=== PATIENT | female | born 1980 ===

== ENCOUNTER 2025-07-11 11:02 | Outpatient (AMB) | payer OTHER, SELFPAY ==
--- OUTSIDE RECORDS SUMMARY | 2025-07-11 13:29 | XMS_ITS | Clinical Summary ---
Author Organization [facility] [address] [facility] Address [address] [place] [address] Phone Care Team Providers Care Senior Regulatory Affairs Specialist Name Role Phone Karen Oakes MD Primary Care Provider [phone] Allergies Active Allergy Reactions Criticality Noted Date Comments Diazepam Nausea And Vomiting 01/18/2006 Oxycodone-Acetaminophen Nausea And Vomiting Pentobarbital Sodium Nausea And Vomiting 2005 Medications mesalamine (CANASA) 1,000 mg suppositoryInd ications:Ulcer ative proctitis ([facility] V24, [facility] V28) Insert 1 suppository (1,000 mg total) into the rectum at bedtime. 30 suppository 5 5 Active L norgest/e.estr adioL-e.estrad (Seasonique) 0.15 mg-30 mcg (84)/10 mcg (7) per tablet Take 1 tablet by mouth 1 (one) time each day. 0 Active fluticasone propionate (FLONASE) 50 mcg/actuation nasal spray 2 spray each nostril daily prn 0 Active MULTIVITAMIN ORAL None Entered Active mesalamine (CANASA) 1,000 mg suppositoryInd ications:Ulcer ative proctitis with rectal bleeding ([facility] V24, [facility] V28) Insert 1 suppository (1,000 mg total) into the rectum at bedtime. Use as directed 90 each 3 5 026 Active Active Problems Problem Noted Date Diagnosed Date Ulcerative (chronic) proctitis ([facility] V24, [facility] V28) 01/26/2025 2014 Sprain of sacroiliac ligament 05/29/2010 Goiter 05/25/2010 Immunizations Name Administration Dates Next Due Td, Unspecified 05/16/2005 Surgical History Surgery Date Site/Laterality Comments OTHER SURGICAL HISTORY 2006 PROCEDURE: ARTHROSCOPY PROCEDURE NEC; COMMENT: right ankle COLONOSCOPY 06/03/2014 - 07/03/2014 moderatly active proctitis Medical History Medical History Date Comments Goiter DX:Goiter; COMME NT: treated as a child Family History Medical History Relation Name Comments Basal cell carcinoma Father Coronary artery disease Father Hypertension Father Other cancer Maternal Grandmother Basal cell carcinoma Paternal Grandmother Breast cancer Neg Hx Colon cancer Neg Hx Ovarian cancer Neg Hx Relation Name Status Comments Brother Alive Father Alive Family heart hx Maternal Grandfather Alive estrang ed Maternal Grandmother Mother Alive Paternal Grandfather Paternal Grandmother Alive Social History Tobacco Use Types Packs/Day Years Used Date Smoking Tobacco: Never Alcohol Use Standard Drinks/Week Comments Yes 0 (1 standard drink = 0.6 oz pur e alcohol) Comments Unknown Sex and Gender Information Value Date Recorded Sex Assigned at Not on file Legal Sex Female 12:18 PM EST Gender Identity Not on file Sexual Orientation Not on file Obstetrics History Last Filed Vital Signs Vital Sign Reading Time Taken Comments Blood Pressure - - Pulse - - Temperature - - Respiratory Rate - - Oxygen Saturation - - Inhaled Oxygen Concentration - - Weight 77.1 kg (170 lb) 01/26/2025 3:05 PM EDT Height 170.2 cm (5' 7 ) 01/26/2025 3:05 PM EDT Body Mass Index 26.63 01/26/2025 3:05 PM EDT Plan of Treatment Health Maintenance Due Date Last Done Comments Breast Cancer Screening 1980 Hepatitis B Vaccines (1 of 3 - 19+ 3-dose series) 1999 Cervical Cancer Screening: Pap Smear 05/24/2013 05/24/2010 DTaP,Tdap,and Td Vaccines (3 - Td or Tdap) 12/04/2022 12/04/2012, 05/16/2005 Depression Screening 11/03/2024 HIV Screening 12/27/2024 Hepatitis C Screening 12/27/2024 Social Influencers of Health Screening 12/27/2024 COVID-19 Vaccine ( season) 2025 07/17/2021, 06/26/2021 Influenza Vaccine (#1) 2025 9, 08/03/2018, 07/23/2018, Additional history exists HIB Vaccines Aged Out No longer eligi ble based on patient's age to complete this topic HPV Vaccines Aged Out No longer eligi ble based on patient's age to complete this topic Hepatitis A Vaccines Aged Out No long er eligible based on patient's age to complete this topic IPV Vaccines Aged Out No longer eligi ble based on patient's age to complete this topic MMR Vaccines Aged Out No longer eligi ble based on patient's age to complete this topic Meningococcal ACWY Vaccine Aged Out N o longer eligible based on patient's age to complete this topic Meningococcal B Vaccine Aged Out No l onger eligible based on patient's age to complete this topic Pneumococcal Vaccine: Pediatrics (0 to 5 Years) and At-Risk Patients (6 to 49 Years) Aged Out No longer eligible based on patient's age to complete this topic RSV Immunization Patients Under 20 months Aged Out No longer eligible based on patient's age to complete this topic Varicella Vaccines Aged Out No longer eligible based on patient's age to complete this topic Procedures Procedure Name Priority Date/Time Associated Diagnosis Comments PAP SMEAR Routine 05/24/2010 from Last 3 Months or Most Recently Relevant to Health Maintenance Results * Pap Smear (05/24/2010) Pap smear no interpretation , abstracted Historical Provider HEALTH MAINTENANCE Final Result from Last 3 Months or Most Recently Relevant to Health Maintenance Insurance [facility] [address] [place] [address] Care Teams Senior Regulatory Affairs Specialist Relationship Specialty Start Date End Date Karen Oakes MD [address] [facility] [address] [place] [id number] PCP - General Family Medicine 12/27/24
== END 2025-07-11 11:11 | disposition home or self-care (01) ==
LOC: HO.HMGAL 11:02
PROVIDERS: PCP Internal Medicine; Visit Provider Registered Nurse Emergency
DX: J30.89 Other allergic rhinitis (principal)
CPT/HCPCS: 95117; 95165

== ENCOUNTER 2025-08-10 10:53 | Outpatient (AMB) | payer OTHER, SELFPAY | END 2025-08-10 10:53 | disposition home or self-care (01) | LOC: HO.HMGAL 10:53 | PROVIDERS: PCP Family Medicine; Visit Provider Registered Nurse Emergency | DX: J30.89 Other allergic rhinitis (principal) | CPT/HCPCS: 95117; 95165 ==

== ENCOUNTER 2025-09-19 11:24 | Outpatient (AMB) | payer OTHER, SELFPAY ==
--- OUTSIDE RECORDS SUMMARY | 2025-09-19 23:38 | XMS_ITS | Data Portability ---
Author Organization [facility], Main Office Address [address] [place] [address] Care Team Providers Care Upsetter Helper Name Role Phone ALEJANDRA CERVANTES Molding Room Supervisor [facility] Variety Saw Operator JOSE JARA Internal Medicine [phone] KAREN ACUNA Primary Care Provider PENELOPE COBURN Plastic/Reconstructive Surgeon Assessment Encounter Date Assessment Date Assessment LastModified by Organization Details LastModified Time 05/12/2023 05/12/2023 Follow up if worsening in 1-2 days. May need hand surgery referral. Will start abx with augmentin given allergy to doxy [email or web address] Not available 05/12/2023 15:18:35 01/09/2024 01/09/2024 Patient is at lo w risk for cardiopulmonary complications with planned procedure based on comorbidities, good exertional tolerance and overall procedure risk. Patient advised to avoid aspirin for 14 days and NSAIDS for 7 days prior. May proceed to scheduled surgery as planned. Not available 01/08/2024 22:02:41 Plan of Treatment Reminders Order Date Submit Date Provider Last Modified By Organization Details Last Modified Time Details Appointments None record ed. Lab lipid panel, serum 2023 024 [email or web address] [facility], [address], [address] , [place], [address], 08:55:53 CBC w/ auto diff 2023 024 [facility], [address], [address], [place], [address], 4 20:16:58 TSH, serum or plasma 2023 024 [facility], [address], [address], [place], [address], 4 20:17:00 CMP, serum or plasma 2023 024 [facility] [facility], [address], [address], [place], [address], 4 20:16:59 lipid panel, serum 2020 021 [facility], [address], [address], [place], [address], 1 17:26:49 CBC w/ auto diff 2020 021 [facility], [address], [address], [place], [address], 1 13:49:41 TSH, serum or plasma 2020 021 [facility], [address], [address], [place], [address], 1 17:32:37 CMP, serum or plasma 2020 021 [facility], [address], [address], [place], [address], 17:26:47 Referral physic al therap ist referr al - Please see for LBP 2021 022 R[facility] Not available 10:13:04 physic al medici ne and rehabi litati on referr al 2021 022 [email or web address] Not available 12:40:57 Procedures None record ed. Surgeries None record ed. Imaging MRI, lumbar spine, w/o contra st 2021 022 [facility] ([facility]), [address] [place], [address], 2 10:46:46 Medication Orders Augmen tin 875 mg-125 mg tablet 2022 023 [email or web address] [facility] - [place], [place], [address], [place], [address], 4 15:11:42 meloxi cam 15 mg tablet 2021 022 [email or web address] [facility], [address], [place], [address], 3 14:42:27 cyclob enzapr ine 5 mg tablet 2021 022 [email or web address] [facility], [address], [place], [address], 3 14:41:58 Patient TargetsNo targets recorded. Patient Instructions Encounter Date Encounter Id Patient Instructions Last Modified By Organization Details Last Modified Time 04/03/2021 [id number] poison cristina, oak, and sumac: care instructions [email or web address] Not available 04/03/2021 22:07:00 Well Visit, Ages 18 to 65: Care Instructions [email or web address] Not available 04/03/2021 14:31:12 medical record request* [email or web address] Not available 05/10/2021 11:01:37 07/19/2022 [id number] low back pain: exercises [email or web address] Not available 07/19/2022 14:33:53 02/13/2024 [id number] Well Visit, Ages 18 to 65: Care Instructions Not available 02/13/2024 10:17:06 Reason for Referral Physical Therapist Referral for Low back pain Please see for LBP Referring Physician: Karen Acuna, Family Medicine, Encounter Date: 07/19/2022 Physical Medicine And Rehabi litation Referral for Low back pain Referring Physician: Karen Acuna, Family Medicine, Encounter Date: 07/19/2022 Results Created Date Observation Date Name Description Value Unit Range Abnormal Flag Note LastModifiedBy Organization Detail LastModifiedTime 04/05/2004/05/2021 CBC w/ auto diff WBC 5.2 K/mm3 (4.0-1 1.0) Not Available [facility] (Centralized Electronic Ordering - All Locations) Patient Can Go To The Location Of Their Choice, [id number] 04/05/2021 13:49:41 04/05/2004/05/2021 CBC w/ auto diff RBC 4.30 M/mm3 (4.20- 5.40) Not Available [facility] (Centralized Electronic Ordering - All Locations) Patient Can Go To The Location Of Their Choice, [id number] 04/05/2021 13:49:41 04/05/2004/05/2021 CBC w/ auto diff HGB 12.6 gm/dL (11.7- 15.5) Not Available [facility] (Centralized Electronic Ordering - All Locations) Patient Can Go To The Location Of Their Choice, [id number] 04/05/2021 13:49:41 04/05/2004/05/2021 CBC w/ auto diff HCT 38.3 % (35.7- 45.8) Not Available [facility] (Centralized Electronic Ordering - All Locations) Patient Can Go To The Location Of Their Choice, [id number] 04/05/2021 13:49:41 04/05/2004/05/2021 CBC w/ auto diff MCV 89.1 fL (80.0- 100.0) Not Available [facility] (Centralized Electronic Ordering - All Locations) Patient Can Go To The Location Of Their Choice, 04/05/2021 13:49:41 04/05/2004/05/2021 CBC w/ auto diff MCH 29.3 pg (27.0- 34.0) Not Available [facility] (Centralized Electronic Ordering - All Locations) Patient Can Go To The Location Of Their Choice, [id number] 04/05/2021 13:49:41 04/05/2004/05/2021 CBC w/ auto diff MCHC 32.9 g/dL (33.0- 37.0) low Not Available [facility] (Centralized Electronic Ordering - All Locations) Patient Can Go To The Location Of Their Choice, 04/05/2021 13:49:41 04/05/2004/05/2021 CBC w/ auto diff plt 245 K/mm3 (150-4 60) Not Available [facility] (Centralized Electronic Ordering - All Locations) Patient Can Go To The Location Of Their Choice, 04/05/2021 13:49:41 04/05/2004/05/2021 CBC w/ auto diff RDW-SD 43.7 fL (<47.0 ) Not Available [facility] (Centralized Electronic Ordering - All Locations) Patient Can Go To The Location Of Their Choice, 04/05/2021 13:49:41 04/05/2004/05/2021 CBC w/ auto diff MPV 11.3 fL (9.4-1 2.4) Not Available [facility] (Centralized Electronic Ordering - All Locations) Patient Can Go To The Location Of Their Choice, 04/05/2021 13:49:41 04/05/2004/05/2021 CBC w/ auto diff automated NRBC 0.0 #/100 _WBC' s Not Available [facility] (Centralized Electronic Ordering - All Locations) Patient Can Go To The Location Of Their Choice, 04/05/2021 13:49:41 04/05/2004/05/2021 CBC w/ auto diff abs. NRBC 0.0 K/mm3 Not Available [facility] (Centralized Electronic Ordering - All Locations) Patient Can Go To The Location Of Their Choice, 04/05/2021 13:49:41 04/05/2004/05/2021 CBC w/ auto diff neut # 2.9 K/mm3 (1.3-7 .0) Not Available [facility] (Centralized Electronic Ordering - All Locations) Patient Can Go To The Location Of Their Choice, 04/05/2021 13:49:41 04/05/2004/05/2021 CBC w/ auto diff lymph # 1.8 K/mm3 (0.8-3 .1) Not Available [facility] (Centralized Electronic Ordering - All Locations) Patient Can Go To The Location Of Their Choice, 04/05/2021 13:49:41 04/05/2004/05/2021 CBC w/ auto diff mono# 0.3 K/mm3 (0.4-0 .9) low Not Available [facility] ([facility]ized Electronic Ordering - All Locations) Patient Can Go To The Location Of Their Choice, 04/05/2021 13:49:41 04/05/2004/05/2021 CBC w/ auto diff eo # 0.1 K/mm3 (0.0-0 .4) Not Available [facility] ([facility] Ordering - All Locations) Patient Can Go To The Location Of Their Choice, 04/05/2021 13:49:41 04/05/2004/05/2021 CBC w/ auto diff baso # 0.0 K/mm3 (0.0-0 .1) Not Available [facility] ([facility] Electronic Ordering - All Locations) Patient Can Go To The Location Of Their Choice, 04/05/2021 13:49:41 04/05/2004/05/2021 CBC w/ auto diff abs. imm gran 0.0 K/mm3 Not Available [facility] ([facility] Ordering - All Locations) Patient Can Go To The Location Of Their Choice, 04/05/2021 13:49:41 04/05/2004/05/2021 CBC w/ auto diff neut 55.5 % (44-76 ) Not Available [facility] (Centralized Electronic Ordering - All Locations) Patient Can Go To The Location Of Their Choice, 04/05/2021 13:49:41 04/05/2004/05/2021 CBC w/ auto diff lymph 34.8 % (15-43 ) Not Available [facility] (Centralized Electronic Ordering - All Locations) Patient Can Go To The Location Of Their Choice, 04/05/2021 13:49:41 04/05/2004/05/2021 CBC w/ auto diff monocyte 6.6 % (4.5-1 0.5) Not Available [facility] ([facility] Ordering - All Locations) Patient Can Go To The Location Of Their Choice, 04/05/2021 13:49:41 04/05/2004/05/2021 CBC w/ auto diff eo 2.1 % (0-6) Not Available [facility] (Centralized Electronic Ordering - All Locations) Patient Can Go To The Location Of Their Choice, 04/05/2021 13:49:41 04/05/2004/05/2021 CBC w/ auto diff baso 0.8 % (0-2) Not Available [facility] ([facility]ized Electronic Ordering - All Locations) Patient Can Go To The Location Of Their Choice, 04/05/2021 13:49:41 04/05/2004/05/2021 CBC w/ auto diff imm gran 0.2 % Not Available [facility] ([facility] Electronic Ordering - All Locations) Patient Can Go To The Location Of Their Choice, 04/05/2021 13:49:41 04/05/2004/05/2021 CMP, serum or plasm a glucose 86 mg/dL (70-99 ) Not Available [facility] ([facility] Ordering - All Locations) Patient Can Go To The Location Of Their Choice, 04/05/2021 17:26:47 04/05/2004/05/2021 CMP, serum or plasm a BUN 14 mg/dL (6-20) Not Available [facility] ([facility] Ordering - All Locations) Patient Can Go To The Location Of Their Choice, 04/05/2021 17:26:47 04/05/2004/05/2021 CMP, serum or plasm a creatinine 0.8 mg/dL (0.5-1 .0) Not Available [facility] ([facility] Ordering - All Locations) Patient Can Go To The Location Of Their Choice, 04/05/2021 17:26:47 04/05/2004/05/2021 CMP, serum or plasm a sodium 138 mmol/ L (133-1 45) Not Available [facility] ([facility] Ordering - All Locations) Patient Can Go To The Location Of Their Choice, 04/05/2021 17:26:47 04/05/2004/05/2021 CMP, serum or plasm a potassium 4.2 mmol/ L (3.6-5 .2) Not Available [facility] ([facility] Ordering - All Locations) Patient Can Go To The Location Of Their Choice, 04/05/2021 17:26:47 04/05/2004/05/2021 CMP, serum or plasm a chloride 104 mmol/ L (98-10 7) Not Available [facility] ([facility] Ordering - All Locations) Patient Can Go To The Location Of Their Choice, 04/05/2021 17:26:47 04/05/2004/05/2021 CMP, serum or plasm a bicarbonate 26 mmol/ L (22-29 ) Not Available [facility] ([facility] Ordering - All Locations) Patient Can Go To The Location Of Their Choice, 04/05/2021 17:26:47 04/05/2004/05/2021 CMP, serum or plasm a anion gap 8 (4-17) Not Available [facility] ([facility] Ordering - All Locations) Patient Can Go To The Location Of Their Choice, 04/05/2021 17:26:47 04/05/2004/05/2021 CMP, serum or plasm a albumin 4.5 gm/dL (3.4-4 .8) Not Available [facility] ([facility] Order[facility] - All Locations) Patient Can Go To The Location Of Their Choice, 04/05/2021 17:26:47 04/05/2004/05/2021 CMP, serum or plasm a calcium 9.2 mg/dL (8.6-1 0.5) Not Available [facility] ([facility] Ordering - All Locations) Patient Can Go To The Location Of Their Choice, 04/05/2021 17:26:47 04/05/2004/05/2021 CMP, serum or plasm a bilirubin,to pedrito 0.5 mg/dL (0-1.2 ) Not Available [facility] ([facility] Ordering - All Locations) Patient Can Go To The Location Of Their Choice, 04/05/2021 17:26:47 04/05/2004/05/2021 CMP, serum or plasm a total protein 6.8 gm/dL (6.2-8 .2) Not Available [facility] ([facility] Ordering - All Locations) Patient Can Go To The Location Of Their Choice, 04/05/2021 17:26:47 04/05/2004/05/2021 CMP, serum or plasm a Ag ratio 2.0 Not Available [facility] ([facility] Ordering - All Locations) Patient Can Go To The Location Of Their Choice, 04/05/2021 17:26:47 04/05/2004/05/2021 CMP, serum or plasm a AST 18 U/L (0-32) Not Available [facility] ([facility] Ordering - All Locations) Patient Can Go To The Location Of Their Choice, 04/05/2021 17:26:47 04/05/2004/05/2021 CMP, serum or plasm a alk phos 49 U/L (35-10 4) Not Available [facility] ([facility] Ordering - All Locations) Patient Can Go To The Location Of Their Choice, 04/05/2021 17:26:47 04/05/2004/05/2021 CMP, serum or plasm a ALT 10 U/L (0-33) Not Available [facility] ([facility] Ordering - All Locations) Patient Can Go To The Location Of Their Choice, 04/05/2021 17:26:47 04/05/2004/05/2021 CMP, serum or plasm a est GFR non 88 mL/mi n/1.7 3_M2 Creat inine based estim ated glome rular filtr ation rate (eGFR ) is calcu lated using the Chron ic Kidne y Disea se Epide miolo gy Colla borat ion (CKD- EPI). The CKD-E PI creat inine equat ion has not been valid ated in child yolande (<18 years ), pregn ant women or in some racia l or ethni c subgr oups other than Cauca sians and Afric an Ameri cans. Not Available [facility] (Centralized Electronic Ordering - All Locations) Patient Can Go To The Location Of Their Choice, 04/05/2021 17:26:47 04/05/2004/05/2021 CMP, serum or plasm a est GFR 102 mL/mi n/1.7 3_M2 Creat inine based estim ated glome rular filtr ation rate (eGFR ) is calcu lated using the Chron ic Kidne y Disea se Epide miolo gy Colla borat ion (CKD- EPI). The CKD-E PI iesha bustillo has not been valid ated in child yolande (<18 years ), pregn ant women or in some racia l or ethni c subgr oups other than Cauca sians and Afric an Ameri cans. Not Available [facility] (Centralized Electronic Ordering - All Locations) Patient Can Go To The Location Of Their Choice, 04/05/2021 17:26:47 04/05/2004/05/2021 lipid panel , serum cholesterol, total 259 mg/dL (<200) high Not Available [facility] ([facility] Order[facility] - All Locations) Patient Can Go To The Location Of Their Choice, 04/05/2021 17:26:48 04/05/2004/05/2021 lipid panel , serum triglyceride 35 mg/dL (<150) Not Available [facility] ([facility] - All Locations) Patient Can Go To The Location Of Their Choice, 04/05/2021 17:26:48 04/05/2004/05/2021 lipid panel , serum HDL chol 103 mg/dL (>39) Not Available [facility] ([facility] Ordering - All Locations) Patient Can Go To The Location Of Their Choice, 04/05/2021 17:26:48 04/05/2004/05/2021 lipid panel , serum LDL cholesterol, calculated 149 mg/dL (0-130 ) high Not Available [facility] ([facility] Ordering - All Locations) Patient Can Go To The Location Of Their Choice, 04/05/2021 17:26:48 04/05/2004/05/2021 lipid panel , serum non HDL cholesterol (calc) 156 mg/dL (<160) Not Available [facility] ([facility] Order[facility] - All Locations) Patient Can Go To The Location Of Their Choice, 04/05/2021 17:26:48 04/05/2004/05/2021 TSH, serum or plasm a TSH 0.77 uIU/m L (0.4-4 .00) Not Available [facility] ([facility] Order[facility] - All Locations) Patient Can Go To The Location Of Their Choice, 04/05/2021 17:32:37 02/13/20 24 02/13/2024 CBC WITH DIFFE RENTI AL/PL ATELE T WBC 5.1 x10e3 /uL 3.4-10 .8 Not Available [facility] ([facility]) [address], [place], [address], 02/23/2024 20:16:57 02/13/20 24 02/13/2024 CBC WITH DIFFE RENTI AL/PL ATELE T RBC 4.40 x10e6 /uL 3.77-5 .28 Not Available [facility] ([facility]) [address], [place], [address], 02/23/2024 20:16:57 02/13/20 24 02/13/2024 CBC WITH DIFFE RENTI AL/PL ATELE T hemoglobin 13.5 g/dL 11.1-1 5.9 Not Available [facility] ([facility]) [address], [place], [address], 02/23/2024 20:16:57 02/13/20 24 02/13/2024 CBC WITH DIFFE RENTI AL/PL ATELE T hematocrit 40.1 % 34.0-4 6.6 Not Available [facility] ([facility]) [address], [place], [address], 02/23/2024 20:16:57 02/13/20 24 02/13/2024 CBC WITH DIFFE RENTI AL/PL ATELE T MCV 91 fL 79-97 Not Available [facility] ([facility]) [address] [place], [address], 02/23/2024 20:16:57 02/13/20 24 02/13/2024 CBC WITH DIFFE RENTI AL/PL ATELE T MCH 30.7 pg 26.6-3 3.0 Not Available [facility] ([facility]) [address] [place], [address], 02/23/2024 20:16:57 02/13/20 24 02/13/2024 CBC WITH DIFFE RENTI AL/PL ATELE T MCHC 33.7 g/dL 31.5-3 5.7 Not Available [facility] ([facility]) [address], [place], [address], 02/23/2024 20:16:57 02/13/20 24 02/13/2024 CBC WITH DIFFE RENTI AL/PL ATELE T RDW 12.4 % 11.7-1 5.4 Not Available [facility] ([facility]) [address], [place], [address], 02/23/2024 20:16:57 02/13/20 24 02/13/2024 CBC WITH DIFFE RENTI AL/PL ATELE T platelets 246 x10e3 /uL 150-45 0 Not Available [facility] ([facility]) [address], [place], [address], 02/23/2024 20:16:57 02/13/20 24 02/13/2024 CBC WITH DIFFE RENTI AL/PL ATELE T neutrophils 46 % not estab. Not Available [facility] ([facility]) [address], [place], [address], 02/23/2024 20:16:57 02/13/20 24 02/13/2024 CBC WITH DIFFE RENTI AL/PL ATELE T lymphs 42 % not estab. Not Available [facility] ([facility]) [address], [place], [address], 02/23/2024 20:16:57 02/13/20 24 02/13/2024 CBC WITH DIFFE RENTI AL/PL ATELE T monocytes 8 % not estab. Not Available [facility] ([facility]) [address] [facility], [place], [address], 02/23/2024 20:16:57 02/13/20 24 02/13/2024 CBC WITH DIFFE RENTI AL/PL ATELE T eos 3 % not estab. Not Available [facility] ([facility]) [address] [place], [address], 02/23/2024 20:16:57 02/13/20 24 02/13/2024 CBC WITH DIFFE RENTI AL/PL ATELE T basos 1 % not estab. Not Available [facility] ([facility]) [address] [facility], [place], [address], 02/23/2024 20:16:57 02/13/20 24 02/13/2024 CBC WITH DIFFE RENTI AL/PL ATELE T immature cells UPSETTER HELPER Not Available [facility] ([facility]) [address] [place], [address], 02/23/2024 20:16:57 02/13/20 24 02/13/2024 CBC WITH DIFFE RENTI AL/PL ATELE T neutrophils (absolute) 2.4 x10e3 /uL 1.4-7. 0 Not Available [facility] ([facility]) [address] [place], [address], 02/23/2024 20:16:57 02/13/20 24 02/13/2024 CBC WITH DIFFE RENTI AL/PL ATELE T lymphs (absolute) 2.1 x10e3 /uL 0.7-3. 1 Not Available [facility] ([facility]) [address] [place], [address], 02/23/2024 20:16:57 02/13/20 24 02/13/2024 CBC WITH DIFFE RENTI AL/PL ATELE T monocytes(ab solute) 0.4 x10e3 /uL 0.1-0. 9 Not Available [facility] ([facility]) [address] [place], [address], 02/23/2024 20:16:57 02/13/20 24 02/13/2024 CBC WITH DIFFE RENTI AL/PL ATELE T eos (absolute) 0.1 x10e3 /uL 0.0-0. 4 Not Available [facility] ([facility]) [address] [facility], [place], [address], 02/23/2024 20:16:57 02/13/20 24 02/13/2024 CBC WITH DIFFE RENTI AL/PL ATELE T baso (absolute) 0.0 x10e3 /uL 0.0-0. 2 Not Available [facility] ([facility]) [address] [facility], [place], [address], 02/23/2024 20:16:57 02/13/20 24 02/13/2024 CBC WITH DIFFE RENTI AL/PL ATELE T immature granulocytes 0 % not estab. Not Available [facility] ([facility]) [address] [facility], [place], [address], 02/23/2024 20:16:57 02/13/20 24 02/13/2024 CBC WITH DIFFE RENTI AL/PL ATELE T immature grans (abs) 0.0 x10e3 /uL 0.0-0. 1 Not Available [facility] ([facility]) [address] [facility], [place], [address], 02/23/2024 20:16:57 02/13/20 24 02/13/2024 CBC WITH DIFFE RENTI AL/PL ATELE T NRBC UPSETTER HELPER Not Available [facility] ([facility]) [address] [facility], [place], [address], 02/23/2024 20:16:57 02/13/20 24 02/13/2024 CBC WITH DIFFE RENTI AL/PL ATELE T hematology comments: UPSETTER HELPER Not Available [facility] ([facility]) [address] [facility], [place], [address], 02/23/2024 20:16:57 02/13/20 24 02/14/2024 COMP. METAB OLIC PANEL (14) glucose 83 mg/dL 70-99 Not Available [facility] ([facility]) [address] [facility], [place], [address], 02/23/2024 20:16:59 02/13/20 24 02/14/2024 COMP. METAB OLIC PANEL (14) BUN 9 mg/dL 6-24 Not Available [facility] ([facility]) [address] [facility] [place], [address], 02/23/2024 20:16:59 02/13/20 24 02/14/2024 COMP. METAB OLIC PANEL (14) creatinine 0.83 mg/dL 0.57-1 .00 Not Available [facility] ([facility]) [address] [facility] [place], [address], 02/23/2024 20:16:59 02/13/20 24 02/14/2024 COMP. METAB OLIC PANEL (14) eGFR 90 mL/mi n/1.7 3 >59 Not Available [facility] ([facility]) [address] [facility], [place], [address], 02/23/2024 20:16:59 02/13/20 24 02/14/2024 COMP. METAB OLIC PANEL (14) BUN/creatini ne ratio 11 9-23 Not Available [facility] ([facility]) [address] [facility] [place], [address], 02/23/2024 20:16:59 02/13/20 24 02/14/2024 COMP. METAB OLIC PANEL (14) sodium 140 mmol/ L 134-14 4 Not Available [facility] ([facility]) [address] [facility] [place], [address], 02/23/2024 20:16:59 02/13/20 24 02/14/2024 COMP. METAB OLIC PANEL (14) potassium 4.1 mmol/ L 3.5-5. 2 Not Available [facility] ([facility]) [address] [facility] [place], [address], 02/23/2024 20:16:59 02/13/20 24 02/14/2024 COMP. METAB OLIC PANEL (14) chloride 101 mmol/ L 96-106 Not Available [facility] ([facility]) [address] [facility], [place], [address], 02/23/2024 20:16:59 02/13/20 24 02/14/2024 COMP. METAB OLIC PANEL (14) carbon dioxide, total 24 mmol/ L 20-29 Not Available [facility] ([facility]) [address] [facility], [place], [address], 02/23/2024 20:16:59 02/13/20 24 02/14/2024 COMP. METAB OLIC PANEL (14) calcium 9.7 mg/dL 8.7-10 .2 Not Available [facility] ([facility]) [address] [facility], [place], [address], 02/23/2024 20:16:59 02/13/20 24 02/14/2024 COMP. METAB OLIC PANEL (14) protein, total 7.0 g/dL 6.0-8. 5 Not Available [facility] ([facility]) [address] [facility], [place], [address], 02/23/2024 20:16:59 02/13/20 24 02/14/2024 COMP. METAB OLIC PANEL (14) albumin 4.4 g/dL 3.9-4. 9 Not Available [facility] ([facility]) [address] [facility], [place], [address], 02/23/2024 20:16:59 02/13/20 24 02/14/2024 COMP. METAB OLIC PANEL (14) globulin, total 2.6 g/dL 1.5-4. 5 Not Available [facility] ([facility]) [address] [facility], [place], [address], 02/23/2024 20:16:59 02/13/20 24 02/14/2024 COMP. METAB OLIC PANEL (14) A/G ratio 1.7 1.2-2. 2 Not Available [facility] ([facility]) [address] [place], [address], 02/23/2024 20:16:59 02/13/20 24 02/14/2024 COMP. METAB OLIC PANEL (14) bilirubin, total 0.5 mg/dL 0.0-1. 2 Not Available [facility] ([facility]) [address] [place], [address], 02/23/2024 20:16:59 02/13/20 24 02/14/2024 COMP. METAB OLIC PANEL (14) alkaline phosphatase 53 IU/L 44-121 Not Available [facility] ([facility]) [address] [place], [address], 02/23/2024 20:16:59 02/13/20 24 02/14/2024 COMP. METAB OLIC PANEL (14) AST (SGOT) 18 IU/L 0-40 Not Available [facility] ([facility]) [address] [place], [address], 02/23/2024 20:16:59 02/13/20 24 02/14/2024 COMP. METAB OLIC PANEL (14) ALT (SGPT) 11 IU/L 0-32 Not Available [facility] ([facility]) [address] [place], [address], 02/23/2024 20:16:59 02/13/20 24 02/14/2024 LIPID PANEL cholesterol, total 272 mg/dL 100-19 9 above high normal Not Available [facility] ([facility]) [address] [place], [address], 02/23/2024 20:16:59 02/13/20 24 02/14/2024 LIPID PANEL triglyceride s 83 mg/dL 0-149 Not Available [facility] ([facility]) [address] [facility], [place], [address], 02/23/2024 20:16:59 02/13/20 24 02/14/2024 LIPID PANEL HDL cholesterol 100 mg/dL >39 Not Available [facility] ([facility]) [address] [facility], [place], [address], 02/23/2024 20:16:59 02/13/20 24 02/14/2024 LIPID PANEL VLDL cholesterol cornell 13 mg/dL 5-40 Not Available [facility] ([facility]) [address] [facility], [place], [address], 02/23/2024 20:16:59 02/13/20 24 02/14/2024 LIPID PANEL LDL chol calc ([facility]) 159 mg/dL 0-99 above high normal Not Available [facility] ([facility]) [address] [facility], [place], [address], 02/23/2024 20:16:59 02/13/20 24 02/14/2024 LIPID PANEL comment: UPSETTER HELPER Not Available [facility] ([facility]) [address] [facility], [place], [address], 02/23/2024 20:16:59 02/13/20 24 02/23/2024 THYRO ID STIMU LATIN G HORMO NE TSH-icma 1.1 uu/mL Refer ence Range : Non-P regna nt Adult 0.450 -4.50 0 Pregn corina First Trime ster 0.100 -4.00 0 Secon d Trime ster 0.200 -4.00 0 Third Trime ster 0.300 -4.50 0 Not Available [facility] [address], [place], [address], 02/23/2024 20:17:00 07/26/20 22 07/26/2022 MRI, lumba r spine , w/o contr ast No observ ation record ed. [facility] ([facility]) [address], [place], [address], 07/27/2022 07:55:37 Result Notes None recorded. Problems Name Problem SNOMED Code Status Onset Date Resolution Date Notes Provider Name and Address Organization Details Recorded Time Painless rectal bleeding 352717543 Completed 11/21/2016 MORENA Baires, [facility] 7 11:08:33 Acute pharyngi tis 624003981 Completed 11/21/2016 MORENA Baires, [facility] 7 11:08:18 Influenz a vaccine needed 39851605638 06 Completed 201005/17/2014 DATE: 09/09/20 11; RECORDED 11/10/19 13 7:49AM BY ROBERT SANDHU ON/ADDEN DUM Brandy iRidgeC [address], [place], [address], [facility] 5 14:23:51 Influenz a vaccine needed 67189791660 06 Completed 201006/09/2014 DATE: 09/09/20 11; RECORDED 11/10/19 13 7:49AM BY ROBERT SANDHU ON/ADDEN DUM VIS ResearchC [address] [address], [place], [address], [facility] 5 14:23:51 Influenz a vaccine needed 21758620655 06 Completed 201006/10/2014 DATE: 09/09/20 11; RECORDED 11/10/19 13 7:49AM BY ROBERT SANDHU ON/ADDEN DUM BrandyShenzhen SEG NavigationC [address], [place], [address], [facility] 5 14:23:51 Amenorrh ea [id number] Completed 201205/17/2014 IMPRESSI ON: + AT HOME TEST THIS MORNING, NEG IN OFFICE (ALTHOUG H URINE VERY DILUTE). WILL CHECK SERUM AND CONTACT PT WITH RESULT WHEN AVAIL.; RECORDED 11/10/19 13 7:49AM BY ROBERT SANDHU ON/ADDEN DUM Brandy Peña PA-C [address], [place], [address], [facility] 5 14:23:50 Screenin g for malignan t neoplasm of cervix Completed 201205/17/2014 RECORDED 11/10/19 13 7:49AM BY ROBERT SANDHU ON/ADDEN DUM Brandy Peña PA-C [address], [place], [address], [facility] 5 14:23:51 Epidermo id cyst of skin [id number] Completed 201205/17/2014 IMPRESSI ON: HAD EXCISION 10 YEARS AGO, PT FORGETS NAME OF SURGEON, WILL REFER TO SURGEON FOR POSSIBLE SURGERY, NO ABCESS NOTED TODAY, OSAK, ABX OINTMENT SEE SURGEON; RECORDED 11/10/19 13 7:49AM BY ROBERT SANDHU ON/ADDEN DUM Brandy Peña PA-C [address], [place], [address], [facility] 5 14:23:50 Disorder of hair AND/OR hair follicle Completed 201205/17/2014 RECORDED 11/10/19 13 7:49AM BY ROBERT SANDHU ON/ADDEN DUM Brandy Peña NH-C [address], [place], [address], [facility] 5 14:23:50 Administ ration of tetanus vaccine Completed 201205/17/2014 RECORDED 11/10/19 13 7:49AM BY ROBERT SANDHU ON/ADDEN DUM Brandy Peña PA-C [address], [place], [address], [facility] 5 14:23:51 Pregnanc y test positive [id number] Completed 201205/17/2014 IMPRESSI ON: PT AWARE OF + SERUM HCG. WILL SEND WITH NOTE FROM YESTERDA Y AND LAB RESULT. SHE WILL CALL TO ARRANGE APPT WITH THEM.; RECORDED 11/10/19 13 7:49AM BY ROBETR SANDHU ON/ADDEN DUM Brandy iRidgeC [address], [place], [address], [facility] 5 14:23:51 Eruption [id number] Completed 201205/17/2014 RECORDED 11/10/19 13 7:49AM BY RBOERT SANDHU ON/ADDEN DUM VIS ResearchC [address] [facility] [address], [place], [address], [facility] 5 14:23:51 Non-toxi c uninodul ar goiter [id number] Completed 201205/17/2014 IMPRESSI ON: KNOWN TO PT, PT STATES IN PAST SHE HAD US AND EVAL, PT REFUSED BIOPSY IN PAST SINCE WAS TOLD LOW CHANCE OF MALIGNAN CY, PT NOT INTEREST ED IN SEEING ENDOM AND NOT INTEREST ED IN CHECKING LEVEL, I ADVISED HER TO GET LEVEL IF UNABLE TO CONCEIVE OR WHEN SHE IS ; RECORDED 11/10/19 13 7:49AM BY ROBERT SANDHU ON/ADDEN DUM Brandy iRidgeC [address] [facility] [address], [place], [address], [facility] 5 14:23:50 Amenorrh ea [id number] Completed 201206/09/2014 IMPRESSI ON: + AT HOME TEST THIS MORNING, NEG IN OFFICE (ALTHOUG H URINE VERY DILUTE). WILL CHECK SERUM AND CONTACT PT WITH RESULT WHEN AVAIL.; RECORDED 11/10/19 13 7:49AM BY ROBERT SANDHU ON/ADDEN DUM Brandy iRidgeC [address], [place], [address], [facility] 5 14:23:50 Screenin g for malignan t neoplasm of cervix Completed 201206/09/2014 RECORDED 11/10/19 13 7:49AM BY ROBERT SANDHU ON/ADDEN DUM Brandy EncrypTix-C [address], [place], [address], [facility] 5 14:23:51 Epidermo id cyst of skin [id number] Completed 201206/09/2014 IMPRESSI ON: HAD EXCISION 10 YEARS AGO, PT FORGETS NAME OF SURGEON, WILL REFER TO SURGEON FOR POSSIBLE SURGERY, NO ABCESS NOTED TODAY, OSAK, ABX OINTMENT SEE SURGEON; RECORDED 11/10/19 13 7:49AM BY ROBERT SANDHU ON/ADDEN DUM Brandy Enc[employer]ix-C [address], [facility] [place], [address], [facility] 5 14:23:50 Disorder of hair AND/OR hair follicle Completed 201206/09/2014 RECORDED 11/10/19 13 7:49AM BY ROBERT SANDHU ON/ADDEN DUM Brandy iRidge [address] [facility] [address], [place] [facility] [place], [address], [facility] 5 14:23:50 Administ ration of tetanus vaccine Completed 201206/09/2014 RECORDED 11/10/19 13 7:49AM BY ROBERT SANDHU ON/ADDEN DUM Brandy iRidgeC [address], [place], [address], [facility] 5 14:23:51 Pregnanc y test positive [id number] Completed 201206/09/2014 IMPRESSI ON: PT AWARE OF + SERUM HCG. WILL SEND WITH NOTE FROM YESTERDA Y AND LAB RESULT. SHE WILL CALL TO ARRANGE APPT WITH THEM.; RECORDED 11/10/19 13 7:49AM BY ROBERT SANDHU ON/ADDEN DUM Brandy Peña PA-C [address], [place], [address], [facility] 5 14:23:51 Eruption [id number] Completed 201206/09/2014 RECORDED 11/10/19 13 7:49AM BY ROBERT SANDHU ON/ADDEN DUM Brandy Peña PA-C [address], [place], [address], [facility] 5 14:23:51 Non-toxi c uninodul ar goiter 817749131 Completed 201206/09/2014 IMPRESSI ON: KNOWN TO PT, PT STATES IN PAST SHE HAD US AND EVAL, PT REFUSED BIOPSY IN PAST SINCE WAS TOLD LOW CHANCE OF MALIGNAN CY, PT NOT INTEREST ED IN SEEING ENDOM AND NOT INTEREST ED IN CHECKING LEVEL, I ADVISED HER TO GET LEVEL IF UNABLE TO CONCEIVE OR WHEN SHE IS ; RECORDED 11/10/19 13 7:49AM BY ROBERT SANDHU ON/ADDEN DUM Brandy Peña PA-C [address] [facility] [address], [place], [address], [facility] 5 14:23:50 Amenorrh ea 29355664 Completed 201206/10/2014 IMPRESSI ON: + AT HOME TEST THIS MORNING, NEG IN OFFICE (ALTHOUG H URINE VERY DILUTE). WILL CHECK SERUM AND CONTACT PT WITH RESULT WHEN AVAIL.; RECORDED 11/10/19 13 7:49AM BY ROBERT SANDHU ON/ADDEN DUM Brandy Peña PA-C [address] [facility] [address], [place], [address], [facility] 5 14:23:50 Screenin g for malignan t neoplasm of cervix Completed 201206/10/2014 RECORDED 11/10/19 13 7:49AM BY ROBERT SANDHU ON/ADDEN DUM Brandy Peña PA-C [address], [place], [address], [facility] 5 14:23:51 Epidermo id cyst of skin [id number] Completed 201206/10/2014 IMPRESSI ON: HAD EXCISION 10 YEARS AGO, PT FORGETS NAME OF SURGEON, WILL REFER TO SURGEON FOR POSSIBLE SURGERY, NO ABCESS NOTED TODAY, OSAK, ABX OINTMENT SEE SURGEON; RECORDED 11/10/19 13 7:49AM BY ROBERT SANDHU ON/ADDEN DUM Brandy iMOSPHERE [address] [facility] [address], [place], [address], [facility] 5 14:23:50 Disorder of hair AND/OR hair follicle Completed 201206/10/2014 RECORDED 11/10/19 13 7:49AM BY ROBERT SANDHU ON/AMY DUM Brandy iRidgeC [address] [facility] [address], [place], [address], [facility] 5 14:23:50 Administ ration of tetanus vaccine Completed 201206/10/2014 RECORDED 11/10/19 13 7:49AM BY ROBERT SANDHU ON/ADDEN DUM Brandy iMOSPHERE [address] [facility] [address], [place], [address], [facility] 5 14:23:51 Pregnanc y test positive [id number] Completed 201206/10/2014 IMPRESSI ON: PT AWARE OF + SERUM HCG. WILL SEND WITH NOTE FROM YESTERDA Y AND LAB RESULT. SHE WILL CALL TO ARRANGE APPT WITH THEM.; RECORDED 11/10/19 13 7:49AM BY ROBERT SANDHU ON/ADDEN DUM Brandy iRidgeC [address] [facility] [address], [place], [address], [facility] 5 14:23:51 Eruption [id number] Completed 201206/10/2014 RECORDED 11/10/19 13 7:49AM BY RUFINO SANDHUATI ON/ADDEN DUM Brandy Casey BUSTILLO [address], [place], [address], [facility] 5 14:23:51 Non-toxi c uninodul ar goiter 104844481 Completed 201206/10/2014 IMPRESSI ON: KNOWN TO PT, PT STATES IN PAST SHE HAD US AND EVAL, PT REFUSED BIOPSY IN PAST SINCE WAS TOLD LOW CHANCE OF MALIGNAN CY, PT NOT INTEREST ED IN SEEING ENDOM AND NOT INTEREST ED IN CHECKING LEVEL, I ADVISED HER TO GET LEVEL IF UNABLE TO CONCEIVE OR WHEN SHE IS ; RECORDED 11/10/19 13 7:49AM BY ROBERT SANDHU ON/ADDEN DUM Brandy Casey BUSTILLO [address], [place], [address], [facility] 5 14:23:50 Patient status finding [id number] Completed 201205/17/2014 RECORDED 01/27/20 13 2:08PM BY YUN PEÑA MA, ANNOTATI ON/ADDEN DUM MORENA Baires, [facility] 7 11:08:05 Patient status finding [id number] Completed 201206/09/2014 RECORDED 01/27/20 13 2:08PM BY YUN PEÑA MA, ANNOTATI ON/ADDEN DUM MORENA Baires, [facility] 7 11:08:05 Patient status finding [id number] Completed 201206/10/2014 RECORDED 01/27/20 13 2:08PM BY YUN PEÑA MA ANNOTISRA ON/ADDEN DUM MORENA Baires, [facility] 7 11:08:05 Adult health examinat ion Active [address] [facility] 7 11:08:17 Contact dermatit is [id number] Active 2012 MORENA Baires, [facility] 7 11:08:32 Goiter [id number] Active 2012 MORENA Baires, [facility] 7 11:08:21 Pure hypercho lesterol emia [id number] Active 2012 MORENA Baires, [facility] 7 11:08:11 Thyrotox icosis 41012988 Active 2012 MORENA Baires, [facility] 7 11:08:40 Allergy Active 2012 IMPRESSI ON: ALSO TO FOOD, ON ZYRTEC AND SEEING ALLERGIS T MORENA Baires, [facility] 7 11:08:03 Pregnanc y [id number] Completed 201211/21/2016 MORENA Baires, [facility] 7 11:08:37 Chronic sinusiti s 10424119 Completed 201211/21/2016 MORENA Baires, [facility] 7 11:08:28 Acute sinusiti s 04761385 Completed 201211/21/[address] [facility] 7 11:08:12 Follow-u p encounte r Completed 201211/21/2016 RECORDED 09/28/20 13 4:09PM BY YUN PEÑA MA, PHONE ENCOUNTE R MORENA Baires [facility] 7 11:08:22 Patient status finding [id number] Completed 201211/21/2016 RECORDED 09/28/20 13 4:08PM BY YUN PEÑA MA, ANNOTATI ON/ADDEN DUM [facility] 7 11:08:05 Miscarri age [id number] Active 2018 MORENA Baires, [facility] 9 08:54:24 Proctiti s 1467257 Active 2018 Felton Rivera MD [address], [place] [facility] [place] [place], [address], [facility] 9 09:12:54 Problem Notes None recorded. Procedures Surgical History Date Name Laterality Status Provider Name and Address Organization Details Recorded Time 2023 Breast augmentation w/implt completed Kayla Lamar LPN [facility] 4 09:57:03 2020 Date of Last Pap Smear completed Mana Lara MA [facility] 1 13:12:35 2014 Eye Surgery completed Mana Lara MA [facility] 1 13:02:53 2013 esophagogastroduodenoscopy completed Ernestina Lima [facility] 1 14:50:00 2006 Orthopedic Surgery completed Mana Lara MA [facility] 1 13:02:53 Imaging Results None recorded. Procedure Notes None recorded. Medical Equipment None Reported. Allergies Allergen ID Allergen Name Allergen Category Reaction Reaction Severity Criticality Documentation Date Start Date Code Code System Note Provider Name and Address Organization Details Recorded Time 17364 doxycycli ne Not available rash Not available Not available 07/09/2016 3640 RxNorm Elton Peña PA-C [address], [place], [address], [facility] 6 15:36:46 10973 nickel environme nt rash Not available Not available 11/21/2016 65051 29 RxNorm WHITE GOLD MORENA Baires, [facility] 7 11:06:15 63378 animal dander environme nt hives respirato ry distress Not available Not available Not available 02/15/[address] [facility] 9 08:51:24 3179 animal derived oil Not available hives respirato ry distress Not available Not available Not available 05/17/20142012 MORENA Baires [facility] 9 08:51:28 3180 house dust allergeni c extract environme nt,medica tion hives Not available Not available 05/17/20142012 [address] [facility] 7 11:04:13 3181 tree nut food hives Not available Not available 05/17/20142012 MORENA B[address] [facility] 7 11:04:28 3182 acetamino phen / oxycodone medicatio n hives Not available Not available 05/17/20142012 [address] [facility] 7 11:04:15 3183 Shellfish (substanc e) food,medi cation diarrhea hives Not available Not available Not available 05/17/20142012 [address] [facility] 7 11:04:17 3184 Tree Pollen medicatio n hives Not available Not available 05/17/20142012 REACT ION: TESTE D POSIT SHIELA AT ALLER GIST MORENA Baires [facility] 7 11:04:32 3185 Tylox medicatio n hives vomiting Not available Not available Not available 05/17/20142012 39988 5 RxNorm [facility]un [facility] 7 11:04:39 3186 Valium medicatio n hives vomiting Not available Not available Not available 05/17/2014201247 2 RxNorm [facility] 4 09:52:14 Medications Name Sig Start Date Stop Date Status Note LastModified by Organization Details LastModified Time breast milk storage bags 11/21 completed Not Available Not Available Not Available multivita min tablet Take 1 tablet every day by oral route. 01/08 completed Not Available Not Available Not Available amoxicill in 500 mg capsule TK 1 C PO BID FOR 10 DAYS 04/03 completed Not Available Not Available Not Available digestive enzymes capsule Take 1 capsule every day by oral route. 02/07 completed Not Available Not Available Not Available prednison e 10 mg tablet DAILY 10/09 completed RECORDED 10/24/20 10 7:14AM BY WILL DOLANC, MEDICATI ON AUTO-SATHYA CTIVATIO N; Not Available Not Available Not Available ofloxacin 0.3 % eye drops active Not Available Not Available Not Available hydrocodo ne 5 mg-acetam inophen 325 mg tablet Take 1 tablet by mouth every 4-6 hours 02/12 completed Not Available Not Available Not Available ondansetr on HCl 8 mg tablet Take 1 tablet by mouth every 8 hours as needed for nausea 02/12 completed Not Available Not Available Not Available minocycli ne 100 mg capsule TWO TIMES DAILY 09/01 completed RECORDED 09/07/20 10 9:02AM BY RAVINDER MCNEILL MD, MEDICATI ON AUTO-SATHYA CTIVATIO N; Not Available Not Available Not Available meloxicam 15 mg tablet Take 1 tablet every day by oral route with meals for 30 days. 05/12 completed Not Available Not Available Not Available prednison e 20 mg tablet Take 2 tablets every day by oral route with meals for 5 days. 09/04 completed Not Available Not Available Not Available Tamiflu 75 mg capsule active Not Available Not Available Not Available amoxicill in 500 mg tablet Take 2 tablets every day by oral route for 10 days. 02/15 completed Not Available Not Available Not Available hydrocort isone acetate 25 mg rectal supposito ry active Not Available Not Available Not Available ketorolac 10 mg tablet active Not Available Not Available Not Available amoxicill in 875 mg tablet TWO TIMES DAILY active Not Available Not Available No t Available prednisol one acetate 1 % eye drops,patience pension active Not Available Not Available Not Available garlic 500 mg tablet DAILY active RECORDED 11/01/20 11 8:51AM BY OSCAR Muniz MD, ANNOTATI ON/AMY MEDRANO; Not Available Not Available Not Available benzonata te 100 mg capsule 09/04 completed Not Available Not Available Not Available cephalexi n 500 mg capsule Take 1 capsule by mouth four times a day 02/12 completed Not Available Not Available Not Available Cipro 500 mg tablet Take 1 tablet every 12 hours by oral route as directed for 3 days. 04/03 completed Not Available Not Available Not Available cranberry fruit 400 mg capsule Take 2 capsules every day by oral route. active Not Available Not Available No t Available monteluka st 10 mg tablet TAKE 1 TABLET BY MOUTH DAILY active Not Available Not Available No t Available clindamyc in 2 % vaginal cream 07/19 completed Not Available Not Available Not Available zolpidem 5 mg tablet active Not Available Not Available Not Available intrauter ine device (IUD) Take by intraute rine route. active Not Available Not Available No t Available fluticaso ne propionat e 50 mcg/actua tion nasal spray,patience pension Inhale 2 sprays every day by intranas al route for 30 days. 11/21 completed Not Available Not Available Not Available doxycycli ne hyclate 100 mg tablet Take 1 tablet twice a day by oral route for 7 days. 07/09 completed Not Available Not Available Not Available cranberry 500 mg capsule Take 1 capsule every day by oral route. 02/15 completed Not Available Not Available Not Available amoxicill in 875 mg-potass ium clavulana te 125 mg tablet TAKE 1 TABLET BY MOUTH TWICE DAILY FOR 10 DAYS 01/08 completed Not Available Not Available Not Available cyclobenz aprine 5 mg tablet Take 1 tablet 3 times a day by oral route for 5 days. 05/12 completed Not Available Not Available Not Available Glucosami ne Chondroit in 500 mg-400 mg capsule Take 1 capsule every day by oral route. 02/07 completed shellfis h-free Not Available Not Available Not Available nitrofura ntoin monohydra te/macroc rystals 100 mg capsule TAKE 1 CAPSULE BY MOUTH every 12 hours FOR 5 DAYS 05/12 completed Not Available Not Available Not Available biotin 1 mg tablet Take 1 tablet every day by oral route. 02/15 completed Not Available Not Available Not Available mesalamin e 1,000 mg rectal supposito ry Insert 1 supposit ory into rectum at bedtime 01/08 completed Not Available Not Available Not Available cranberry DAILY 11/21 completed Not Available Not Available Not Available biotin 1 capsule po daily 01/08 completed Not Available Not Available Not Available Daily Multi Vitamin/M inerals 1 PO DAILY 11/21 completed Not Available Not Available Not Available multivita min 2 chews daily active Not Available Not Available No t Available collagen (bovine) 6 tabs daily active Not Available Not Available No t Available Seasonale contracep tive 09/09 completed RECORDED 09/09/20 11 4:00PM BY YUN PEÑA MA, OFFICE VISIT; Not Available Not Available Not Available Zithromax TRI-AGATHA DAILY 09/12 completed RECORDED 11/01/20 11 8:26AM BY FELTON RIVERA MD, MEDICATI ON AUTO-SATHYA CTIVATIO N; Not Available Not Available Not Available OsmoPrep 1.5 gram (1.102-0. 398) tablet active Not Available Not Available Not Available Seasoniqu e 0.15 mg-30 mcg (84)/10 mcg(7) tablets,3 month dose pack QD 11/01 completed RECORDED 11/01/20 11 9:29AM BY YUN PEÑA MA, ANNOTATI ON/ADDEN DUM; Not Available Not Available Not Available glucosami ne HCl DAILY active RECORDED 11/01/20 11 8:50AM BY OSCAR Muniz MD, ANNOTATI ON/AMY DUM; Not Available Not Available Not Available Cranberry -Probioti c 480 mg-20 mg-100 million cell tablet Take 2 tablets every day by oral route. 01/08 completed Not Available Not Available Not Available Lotemax 0.5 % eye gel drops active Not Available Not Available No t Available Fish Oil 1,000 mg (120 mg-180 mg) capsule Take 1 capsule every day by oral route. 01/08 completed Not Available Not Available Not Available elderberr y fruit 460 mg-elderb erry flower 115 mg capsule Take 1 capsule every day by oral route. 01/08 completed Not Available Not Available Not Available Elderberr y Immune Health 45 mg-3.75 mg-50 mg chewable tablet Take 2 tablets every day by oral route. active Not Available Not Available No t Available DHA from Algae 1 daily active Not Available Not Available Not Available Vitals Date Recorded Body height Body mass index (BMI) Body weight Oxygen saturation Oxygen saturation in Arterial blood by Pulse oximetry Heart rate Body temperature Systolic And Diastolic Provider Name and Address Organization Details Last Updated DateTime 4 170.18 cm 25.4 kg/m2 79035.9 6 g 100 % 100 % 73 /min 98.2 [degF] 125/77 mm[Hg] Ashlie Culver MA [facility] 4 15:11:31 Date Recorded Body height Body mass index (BMI) Body weight Heart rate Oxygen saturation Oxygen saturation in Arterial blood by Pulse oximetry Body temperature Systolic And Diastolic Provider Name and Address Organization Details Last Updated DateTime 4 170.18 cm 26.1 kg/m2 33403.1 3 g 61 /min 99 % 99 % 98.1 [degF] 119/74 mm[Hg] Maria D Lamar LPN [facility] 4 09:51:39 Date Recorded Body weight Body mass index (BMI) Body height Heart rate Oxygen saturation Oxygen saturation in Arterial blood by Pulse oximetry Body temperature Systolic And Diastolic Provider Name and Address Organization Details Last Updated DateTime 1 27960.4 1 g 24.4 kg/m2 170.18 cm 80 /min 97 % 97 % 98.78 [degF] 115/68 mm[Hg] Mana Lara [facility] 1 13:09:30 Date Recorded Body height Body mass index (BMI) Body weight Heart rate Oxygen saturation Oxygen saturation in Arterial blood by Pulse oximetry Body temperature Systolic And Diastolic Provider Name and Address Organization Details Last Updated DateTime 3 170.18 cm 24.8 kg/m2 62189.6 9 g 77 /min 98 % 98 % 98.4 [degF] 127/80 mm[Hg] Charlene Sorto MA [facility] 3 14:44:33 Date Recorded Body height Heart rate Oxygen saturation Oxygen saturation in Arterial blood by Pulse oximetry Body temperature Systolic And Diastolic Provider Name and Address Organization Details Last Updated DateTime 2 170.18 cm 61 /min 97 % 97 % 98.42 [degF] 119/76 mm[Hg] Yun segundo MA [facility] 2 14:10:48 Social History Question Answer Notes LastModified by Organizat ion Details LastModified Time Tobacco Smoking Status Never Smoker Mana harrison [facility] 05/23/2014 09:34:38 Do You Have An Advance Directive? Yes Brother: Ernesto Tanner Information not available 07/19/2022 Is Blood Transfusion Acceptable In An Emergency? Yes Information not available 11/21/2016 What Is Your Level Of Caffeine Consumption? Moderate 1-2 Servings Daily Information not available 11/21/2016 How Much Tobacco Do You Chew? None Information not available 11/21/2016 What Type Of Diet Are You Following? SPECIFIC [id number] Information not available 04/03/2021 Which Illicit Or Recreational Drugs Have You Used? None Information not available 11/21/2016 Live Alone Or With Others? With Others Boyfriend And Daughter Information not available 07/19/2022 Do You Take Precautions To Prevent Distracted Driving? No Information not available 11/21/2016 How Often Do You Need To Have Someone Help You When You Read Instructions, Pamphlets, Or Other Written Material From Your Doctor Or Pharmacy? Never Information not available 11/21/2016 Have You Served In The ? No Information not available 11/21/2016 To The Best Of Your Knowledge Have You Been In Close Proximity To Any Individual Who Tested Positive For COVID-19? No [email or web address] Information not available 04/03/2021 What Was The Date Of Your Most Recent Tobacco Screening? 02/13/2024 [email or web address] Information not available 02/13/2024 How Many Children Do You Have? 1 Kacey Information not available 11/21/2016 Do You Use Protection During Sex? No Information not available 11/21/2016 Seat Belts Used Routinely Yes Information not available 07/19/2022 Are You Sexually Active? Yes Information not available 11/21/2016 Smoke Alarm In Home Yes Information not available 07/19/2022 At What Age Did You Start Smoking Tobacco? 0 Information not available 11/21/2016 Are You Passively Exposed To Smoke? No Information not available 11/21/2016 How Much Tobacco Do You Smoke? No Information not available 11/21/2016 Do You Use Sunscreen Routinely? Yes [email or web address] Information not available 04/03/2021 How Many Years Have You Smoked Tobacco? 0 Information not available 11/21/2016 Sex: Unknown Functional Status Question Answer Note LastModified by Organizat ion Details LastModified Time Do you use any illicit or recreational drugs? No Information not available 07/19/2022 Do you or have you ever used any other forms of tobacco or nicotine? No Information not available 07/19/2022 What is your level of alcohol consumption? Moderate 1-2 drinks per week Information not available 11/21/2016 Do you or have you ever used smokeless tobacco? Never used smokeless tobacco Information not available 02/08/2020 Are you currently employed? Yes Information not available 11/21/2016 Are you able to walk independently without assistance or assistive devices? YESWOREST Information not available 07/19/2022 Are you able to care for yourself independently? 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 Never used electronic cigarettes Information not available 07/19/2022 What is your exercise level? Moderate 5-6 x week Information not available 11/21/2016 Mental Status None recorded. Family History Relationship Description Onset Age of this Age Resolved Age Notes LastModified by Organization Details LastModified Time Mother Heart disease [email or web address] Not available 2020 13:01:34 Mother Essential hypertension Not available 14:04:25 Father Hyperlipidem ia Not available 2021 14:04:25 Father Hypercholest erolemia Not available 2020 13:01:34 Father Obesity [email or web address] Not available 04/03/2021 13:01:34 Father Hypertensive disorder Not available 2020 13:01:34 Brother Hyperlipidem ia 30 Not available 2021 14:04:25 Brother Hypertensive disorder Not available 2020 13:01:34 Maternal Grandmother Neoplasm of brain Not available 2021 14:04:25 Unspecified Relation Malignant neoplasm of skin strong family histor y Not available 07/19/2022 14:04:25 Paternal Uncle Hypercholest erolemia [email or web address] Not available 2020 13:01:34 Medical History Condition Response GI Problems Y Constipation Y Anesthesia Complications Y Head Injury/Concussion Y Eczema Y Allergies Y High Cholesterol Y Chicken Pox Y Gynecological History Statement/Question Response Menses Monthly Y Date of Last Pap Smear 03/29/2021 Flow Moderate Age at Menarche 11 Current Control Method None Age at First Child 32 Sexually Active? Y Obstetrics History GPAL:G 0 P 0 0 0 0 Immunizations Vaccine Type Date Status Note Provider Name and Address Organization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
== END 2025-09-19 11:26 | disposition home or self-care (01) ==
LOC: HO.HMGAL 11:24
PROVIDERS: PCP Family Medicine; Visit Provider Registered Nurse Emergency
DX: J30.89 Other allergic rhinitis (principal)
CPT/HCPCS: 95117; 95165

== ENCOUNTER 2025-10-24 08:39 | Outpatient (AMB) | payer OTHER, SELFPAY ==
--- OUTSIDE RECORDS SUMMARY | 2025-10-24 08:58 | XMS_ITS | Clinical Summary ---
Author Organization [facility] [address] [facility] Address [address] [place] [address] Phone Care Team Providers Care Culinary Manager Name Role Phone Karen Oakes MD Primary Care Provider [phone] Allergies Active Allergy Reactions Criticality Noted Date Comments Diazepam Nausea And Vomiting 01/18/2006 Oxycodone-Acetaminophen Nausea And Vomiting Pentobarbital Sodium Nausea And Vomiting 2005 Medications mesalamine (CANASA) 1,000 mg suppositoryInd ications:Ulcer ative proctitis ([facility] V24, [facility] V28) Insert 1 suppository (1,000 mg total) [...] suppositoryInd ications:Ulcer ative proctitis with rectal bleeding ([facility] V24, [facility] V28) Insert 1 suppository (1,000 mg total) into the rectum at bedtime. Use as directed 90 each 3 5 026 Active Active Problems Problem Noted Date Diagnosed Date Ulcerative (chronic) proctitis 01/26/2025 2 014 Sprain of sacroiliac ligament 05/29/2010 Goiter 05/25/2010 Immunizations Immunization Administration Dates Next Due Td, Unspecified 05/16/2005 [...] on file Sexual Orientation Not on file Last Filed Vital Signs Vital Sign Reading [...] of 3 - 19+ 3-dose series) 1999 HPV Vaccines (1 - 3-dose SCDM series) 2007 Cervical Cancer Screening: Pap Smear 05/24/2013 05/24/2010 DTaP,Tdap,and Td Vaccines (3 - Td or Tdap) 12/04/2022 12/04/2012, 05/16/2005 Colorectal Cancer Screening: Colonoscopy 06/17/2024 06/17/2014 Depression Screening 11/03/2024 HIV Screening 12/27/2024 Hepatitis C Screening 12/27/2024 Social Influencers of Health Screening 12/27/2024 COVID-19 Vaccine ( season) 2025 07/17/2021, 06/26/2021 Influenza Vaccine (#1) 2025 9, 08/03/2018, 07/23/2018, Additional history exists RSV Immunization Adult Patients (1 - 1-dose 75+ series) 2055 HIB Vaccines Aged Out No longer eligi [...] Procedure Name Priority Date/Time Associated Diagnosis Comments EXTERNAL COLONOSCOPY REPORT Routine 06/17/2014 3:08 PM EDT PAP SMEAR Routine 05/24/2010 from Last 3 Months or Most Recently Relevant to Health Maintenance Results * External Colonoscopy Report (06/17/2014 3:08 PM EDT) Anatomical Region Laterality Modality Endoscopy us Historical Provider GI~PROCEDURE ORDERABLES F inal Result * Pap Smear (05/24/2010) HM Pap smear no interpretation , abstracted us Historical Provider HEALTH MAINTENANCE Final Result from Last 3 Months or Most Recently Relevant to Health Maintenance Insurance [facility] [address] [place] [id number] Care Teams Culinary Manager Relationship Specialty Start Date End Date Karen Oakes MD [address] [facility] [address] [place] [id number] PCP - General Family Medicine 12/27/24
--- OUTSIDE RECORDS SUMMARY | 2025-10-24 08:58 | XMS_ITS | Data Portability ---
Author Organization [facility], Main Office Address [address] [place] [address] Care Team Providers Care It Software Developer Name Role Phone ALEJANDRA CERVANTES Car Retarder Operator [facility] Microbiology Analyst JOSE JARA Internal Medicine KAREN ACUNA Primary Care Provider PENELOPE COBURN [...] panel, serum 2023 024 [email or web address] [facility], [address], [address] , [place], [address], 08:55:53 CBC w/ auto diff 2023 024 [facility], [address], [address], [place], [address], 4 20:16:58 TSH, serum or plasma 2023 024 [facility], [address], [address], [place], [address], 4 20:17:00 CMP, serum or plasma 2023 024 [facility], [address], [address], [place], [address], 4 20:16:59 lipid panel, serum 2020 021 [facility], [address], [address], [place], [address], 1 17:26:49 CBC w/ auto diff 2020 021 [facility], [address], [address], [place], [address], 1 13:49:41 TSH, serum or plasma 2020 021 [facility], [address], [address], [place], [address], 1 17:32:37 CMP, serum or plasma 2020 021 [facility], [address], [address], [place], [address], 17:26:47 Referral physic al therap ist referr al - Please see for LBP 2021 022 RIVER Not available 10:13:04 physic al medici ne and rehabi litati on referr al 2021 022 [email or web address] Not available 12:40:57 Procedures None record ed. Surgeries None record ed. Imaging MRI, lumbar spine, w/o contra st 2021 022 [facility] ([facility]), [address] [place], [address], 2 10:46:46 Medication Orders Augmen tin 875 mg-125 mg tablet 2022 023 [email or web address] [facility] - [place], [place], [address], [place], [address], 4 15:11:42 meloxi cam 15 mg tablet 2021 022 [email or web address] [facility], [address], [place], [address], 3 14:42:27 cyclob enzapr ine 5 mg tablet 2021 022 [email or web address] [facility], [address], [place], [address], 3 14:41:58 Patient TargetsNo targets recorded. Patient Instructions Encounter Date Encounter Id Patient Instructions Last Modified By Organization Details Last Modified Time 04/03/2021 [id number] poison cristina, oak, and sumac: care instructions [email or web address] Not available 04/03/2021 22:07:00 Well Visit, Ages 18 to 65: Care Instructions [email or web address] Not available 04/03/2021 14:31:12 medical record request* yennifer Not available 05/10/2021 11:01:37 07/19/2022 [id number] low back pain: exercises [email or web address] Not available 07/19/2022 14:33:53 02/13/2024 [id number] Well Visit, Ages 18 to 65: Care Instructions Not available 02/13/2024 10:17:06 Reason for Referral Physical Therapist Referral for Low back pain Please see for LBP Referring Physician: Karen Aucna, Family Medicine, Encounter Date: 07/19/2022 Physical Medicine [...] Go To The Location Of Their Choice, [id number] 04/05/2021 13:49:41 04/05/2004/05/2021 CBC w/ auto diff RBC 4.30 M/mm3 (4.20- 5.40) Not Available [facility] (Centralized Electronic Ordering - All Locations) Patient Can Go To The Location Of Their Choice, [id number] 04/05/2021 13:49:41 04/05/2004/05/2021 CBC w/ auto diff HGB 12.6 gm/dL (11.7- 15.5) Not Available [facility] (Centralized Electronic Ordering - All Locations) Patient Can Go To The Location Of Their Choice, [id number] 04/05/2021 13:49:41 04/05/2004/05/2021 CBC w/ auto diff HCT 38.3 % (35.7- 45.8) Not Available [facility] (Centralized Electronic Ordering - All Locations) Patient Can Go To The Location Of Their Choice, [id number] 04/05/2021 13:49:41 04/05/2004/05/2021 CBC w/ auto diff MCV 89.1 fL (80.0- 100.0) Not Available [facility] (Centralized Electronic Ordering - All Locations) Patient Can Go To The Location Of Their Choice, 04/05/2021 13:49:41 04/05/2004/05/2021 CBC w/ auto diff MCH 29.3 pg (27.0- 34.0) Not Available [facility] (Centralized Electronic Ordering - All Locations) Patient Can Go To The Location Of Their Choice, [id number] 04/05/2021 13:49:41 04/05/2004/05/2021 CBC w/ auto diff [...] x10e3 /uL 3.4-10 .8 Not Available [facility] ([facility]) [address], [place], [address], 02/23/2024 20:16:57 02/13/20 24 02/13/2024 CBC WITH DIFFE RENTI AL/PL ATELE T RBC 4.40 x10e6 /uL 3.77-5 .28 Not Available [facility] ([facility]) [address] [facility], [place], [address], 02/23/2024 20:16:57 02/13/20 24 02/13/2024 CBC WITH DIFFE RENTI AL/PL ATELE T hemoglobin 13.5 g/dL 11.1-1 5.9 Not Available [facility] ([facility]) [address] [facility], [place], [address], 02/23/2024 20:16:57 02/13/20 24 02/13/2024 CBC WITH DIFFE RENTI AL/PL ATELE T hematocrit 40.1 % 34.0-4 6.6 Not Available [facility] ([facility]) [address] [facility], [place], [address], 02/23/2024 20:16:57 02/13/20 24 02/13/2024 CBC WITH DIFFE RENTI AL/PL ATELE T MCV 91 fL 79-97 Not Available [facility] ([facility]) [address] [place], [address], 02/23/2024 20:16:57 02/13/20 24 02/13/2024 CBC WITH DIFFE RENTI AL/PL ATELE T MCH 30.7 pg 26.6-3 3.0 Not Available [facility] ([facility]) [address] [place], [address], 02/23/2024 20:16:57 02/13/20 24 02/13/2024 CBC WITH DIFFE RENTI AL/PL ATELE T MCHC 33.7 g/dL 31.5-3 5.7 Not Available [facility] ([facility]) [address] [facility], [place], [address], 02/23/2024 20:16:57 02/13/20 24 02/13/2024 CBC WITH DIFFE RENTI AL/PL ATELE T RDW 12.4 % 11.7-1 5.4 Not Available [facility] ([facility]) [address] [facility], [place], [address], 02/23/2024 20:16:57 02/13/20 24 02/13/2024 CBC WITH DIFFE RENTI AL/PL ATELE T platelets 246 x10e3 /uL 150-45 0 Not Available [facility] ([facility]) [address] [facility], [place], [address], 02/23/2024 20:16:57 02/13/20 24 02/13/2024 CBC WITH DIFFE RENTI AL/PL ATELE T neutrophils 46 % not estab. Not Available [facility] ([facility]) [address] [facility], [place], [address], 02/23/2024 20:16:57 02/13/20 24 02/13/2024 CBC WITH DIFFE RENTI AL/PL ATELE T lymphs 42 % not estab. Not Available [facility] ([facility]) [address] [facility], [place], [address], 02/23/2024 20:16:57 02/13/20 24 02/13/2024 CBC WITH DIFFE RENTI AL/PL ATELE T monocytes 8 % not estab. Not Available [facility] ([facility]) [address] [facility], [place], [address], 02/23/2024 20:16:57 02/13/20 24 02/13/2024 CBC WITH DIFFE RENTI AL/PL ATELE T eos 3 % not estab. Not Available [facility] ([facility]) [address] [place], [address], 02/23/2024 20:16:57 02/13/20 24 02/13/2024 CBC WITH DIFFE RENTI AL/PL ATELE T basos 1 % not estab. Not Available [facility] ([facility]) [address] [facility], [place], [address], 02/23/2024 20:16:57 02/13/20 24 02/13/2024 CBC WITH DIFFE RENTI AL/PL ATELE T immature cells GLUER AND SLICER HAND Not Available [facility] ([facility]) [address] [place], [address], 02/23/2024 20:16:57 02/13/20 24 02/13/2024 CBC WITH DIFFE RENTI AL/PL ATELE T neutrophils (absolute) 2.4 x10e3 /uL 1.4-7. 0 Not Available [facility] ([facility]) [address] [place], [address], 02/23/2024 20:16:57 02/13/20 24 02/13/2024 CBC WITH DIFFE RENTI AL/PL ATELE T lymphs (absolute) 2.1 x10e3 /uL 0.7-3. 1 Not Available [facility] ([facility]) [address] [place], [address], 02/23/2024 20:16:57 02/13/20 24 02/13/2024 CBC WITH DIFFE RENTI AL/PL ATELE T monocytes(ab solute) 0.4 x10e3 /uL 0.1-0. 9 Not Available [facility] ([facility]) [address] [place], [address], 02/23/2024 20:16:57 02/13/20 24 02/13/2024 CBC WITH DIFFE RENTI AL/PL ATELE T eos (absolute) 0.1 x10e3 /uL 0.0-0. 4 Not Available [facility] ([facility]) [address] [facility], [place], [address], 02/23/2024 20:16:57 02/13/20 24 02/13/2024 CBC WITH DIFFE RENTI AL/PL ATELE T baso (absolute) 0.0 x10e3 /uL 0.0-0. 2 Not Available [facility] ([facility]) [address] [facility], [place], [address], 02/23/2024 20:16:57 02/13/20 24 02/13/2024 CBC WITH DIFFE RENTI AL/PL ATELE T immature granulocytes 0 % not estab. Not Available [facility] ([facility]) [address] [facility], [place], [address], 02/23/2024 20:16:57 02/13/20 24 02/13/2024 CBC WITH DIFFE RENTI AL/PL ATELE T immature grans (abs) 0.0 x10e3 /uL 0.0-0. 1 Not Available [facility] ([facility]) [address] [facility], [place], [address], 02/23/2024 20:16:57 02/13/20 24 02/13/2024 CBC WITH DIFFE RENTI AL/PL ATELE T NRBC GLUER AND SLICER HAND Not Available [facility] ([facility]) [address] [facility], [place], [address], 02/23/2024 20:16:57 02/13/20 24 02/13/2024 CBC WITH DIFFE RENTI AL/PL ATELE T hematology comments: GLUER AND SLICER HAND Not Available [facility] ([facility]) [address] [facility], [place], [address], 02/23/2024 20:16:57 02/13/20 24 02/14/2024 COMP. METAB OLIC PANEL (14) glucose 83 mg/dL 70-99 Not Available [facility] ([facility]) [address] [facility], [place], [address], 02/23/2024 20:16:59 02/13/20 24 02/14/2024 COMP. METAB OLIC PANEL (14) BUN 9 mg/dL 6-24 Not Available [facility] ([facility]) [address] [place], [address], 02/23/2024 20:16:59 02/13/20 24 02/14/2024 COMP. METAB OLIC PANEL (14) creatinine 0.83 mg/dL 0.57-1 .00 Not Available [facility] ([facility]) [address] [place], [address], 02/23/2024 20:16:59 02/13/20 24 02/14/2024 COMP. METAB OLIC PANEL (14) eGFR 90 mL/mi n/1.7 3 >59 Not Available [facility] ([facility]) [address] [facility], [place], [address], 02/23/2024 20:16:59 02/13/20 24 02/14/2024 COMP. METAB OLIC PANEL (14) BUN/creatini ne ratio 11 9-23 Not Available [facility] ([facility]) [address] [place], [address], 02/23/2024 20:16:59 02/13/20 24 02/14/2024 COMP. METAB OLIC PANEL (14) sodium 140 mmol/ L 134-14 4 Not Available [facility] ([facility]) [address] [place], [address], 02/23/2024 20:16:59 02/13/20 24 02/14/2024 COMP. METAB OLIC PANEL (14) potassium 4.1 mmol/ L 3.5-5. 2 Not Available [facility] ([facility]) [address] [place], [address], 02/23/2024 20:16:59 02/13/20 24 02/14/2024 COMP. METAB OLIC PANEL (14) chloride 101 mmol/ L 96-106 Not Available [facility] ([facility]) [address] [facility], [place], [address], 02/23/2024 20:16:59 02/13/20 24 02/14/2024 COMP. METAB OLIC PANEL (14) carbon dioxide, total 24 mmol/ L 20-29 Not Available [facility] ([facility]) [address] [facility], [place], [address], 02/23/2024 20:16:59 02/13/20 24 02/14/2024 COMP. METAB OLIC PANEL (14) calcium 9.7 mg/dL 8.7-10 .2 Not Available [facility] ([facility]) [address] [facility], [place], [address], 02/23/2024 20:16:59 02/13/20 24 02/14/2024 COMP. METAB OLIC PANEL (14) protein, total 7.0 g/dL 6.0-8. 5 Not Available [facility] ([facility]) [address] [facility], [place], [address], 02/23/2024 20:16:59 02/13/20 24 02/14/2024 COMP. METAB OLIC PANEL (14) albumin 4.4 g/dL 3.9-4. 9 Not Available [facility] ([facility]) [address] [facility], [place], [address], 02/23/2024 20:16:59 02/13/20 24 02/14/2024 COMP. METAB OLIC PANEL (14) globulin, total 2.6 g/dL 1.5-4. 5 Not Available [facility] ([facility]) [address] [facility], [place], [address], 02/23/2024 20:16:59 02/13/20 24 02/14/2024 COMP. METAB OLIC PANEL (14) A/G ratio 1.7 1.2-2. 2 Not Available [facility] ([facility]) [address] [place], [address], 02/23/2024 20:16:59 02/13/20 24 02/14/2024 COMP. METAB OLIC PANEL (14) bilirubin, total 0.5 mg/dL 0.0-1. 2 Not Available [facility] ([facility]) [address] [place], [address], 02/23/2024 20:16:59 02/13/20 24 02/14/2024 COMP. METAB OLIC PANEL (14) alkaline phosphatase 53 IU/L 44-121 Not Available [facility] ([facility]) [address] [place], [address], 02/23/2024 20:16:59 02/13/20 24 02/14/2024 COMP. METAB OLIC PANEL (14) AST (SGOT) 18 IU/L 0-40 Not Available [facility] ([facility]) [address] [place], [address], 02/23/2024 20:16:59 02/13/20 24 02/14/2024 COMP. METAB OLIC PANEL (14) ALT (SGPT) 11 IU/L 0-32 Not Available [facility] ([facility]) [address] [place], [address], 02/23/2024 20:16:59 02/13/20 24 02/14/2024 LIPID PANEL cholesterol, total 272 mg/dL 100-19 9 above high normal Not Available [facility] ([facility]) [address] [place], [address], 02/23/2024 20:16:59 02/13/20 24 02/14/2024 LIPID PANEL triglyceride s 83 mg/dL 0-149 Not Available [facility] ([facility]) [address] [facility], [place], [address], 02/23/2024 20:16:59 02/13/20 24 02/14/2024 LIPID PANEL HDL cholesterol 100 mg/dL >39 Not Available [facility] ([facility]) [address] [facility], [place], [address], 02/23/2024 20:16:59 02/13/20 24 02/14/2024 LIPID PANEL VLDL cholesterol cornell 13 mg/dL 5-40 Not Available [facility] ([facility]) [address] [facility], [place], [address], 02/23/2024 20:16:59 02/13/20 24 02/14/2024 LIPID PANEL LDL chol calc ([facility]) 159 mg/dL 0-99 above high normal Not Available [facility] ([facility]) [address] [facility], [place], [address], 02/23/2024 20:16:59 02/13/20 24 02/14/2024 LIPID PANEL comment: GLUER AND SLICER HAND Not Available [facility] ([facility]) [address] [facility], [place], [address], 02/23/2024 20:16:59 02/13/20 24 02/23/2024 THYRO ID STIMU LATIN G HORMO NE TSH-icma 1.1 uu/mL Refer ence Range : Non-P regna nt Adult 0.450 -4.50 0 Pregn corina First Trime ster 0.100 -4.00 0 Secon d Trime ster 0.200 -4.00 0 Third Trime ster 0.300 -4.50 0 Not Available [facility] [address], [place], [address], 02/23/2024 20:17:00 07/26/20 22 07/26/2022 MRI, lumba r spine , w/o contr ast No observ ation record ed. [facility] ([facility]) [address], [place], [address], 07/27/2022 07:55:37 Result Notes None recorded. Problems Name Problem SNOMED Code Status Onset Date Resolution Date Notes Provider Name and Address Organization Details Recorded Time Painless rectal bleeding 195564820 Completed 11/21/2016 MORENA Baires, [facility] 7 11:08:33 Acute pharyngi tis [id number] Completed 11/21/2016 MORENA Baires, [facility] 7 11:08:18 Influenz a vaccine needed 23954513821 06 Completed 201005/17/2014 DATE: 09/09/20 11; RECORDED 11/10/19 13 7:49AM BY ROBERT SANDHU ON/ADDEN DUM Br[facility] [address], [place], [address], [facility] 5 14:23:51 Influenz a vaccine needed 07107173432 06 Completed 201006/09/2014 DATE: 09/09/20 11; RECORDED 11/10/19 13 7:49AM BY ROBERT SANDHU ON/ADDEN DUM [employer] [address], [place], [address], [facility] 5 14:23:51 Influenz a vaccine needed 87096781560 06 Completed 201006/10/2014 DATE: 09/09/20 11; RECORDED 11/10/19 13 7:49AM BY ROBERT SANDHU ON/ADDEN DUM [employer] [address], [place], [address], [facility] 5 14:23:51 Amenorrh ea [id number] Completed 201205/17/2014 IMPRESSI ON: + AT HOME TEST THIS MORNING, NEG IN OFFICE (ALTHOUG H URINE VERY DILUTE). WILL CHECK SERUM AND CONTACT PT WITH RESULT WHEN AVAIL.; RECORDED 11/10/19 13 7:49AM BY ROBERT SANDHU ON/ADDEN DUM Brandy Peña PA-C [address], [place], [address], [facility] 5 14:23:50 Screenin g for malignan t neoplasm of cervix Completed 201205/17/2014 RECORDED 11/10/19 13 7:49AM BY ROBERT SANDHU ON/ADDEN DUM Brandy Peña PA-C [address], [place], [address], [facility] 5 14:23:51 Epidermo id cyst of skin [id number] Completed 201205/17/2014 IMPRESSI ON: HAD EXCISION 10 YEARS AGO, PT FORGETS NAME OF SURGEON, WILL REFER TO SURGEON FOR POSSIBLE SURGERY, NO ABCESS NOTED TODAY, OSAK, ABX OINTMENT SEE SURGEON; RECORDED 11/10/19 13 7:49AM BY ROBERT SANDHU ON/ADDEN DUM Brandy Peña PA-C [address], [place], [address], [facility] 5 14:23:50 Disorder of hair AND/OR hair follicle Completed 201205/17/2014 RECORDED 11/10/19 13 7:49AM BY ROBERT SANDHU ON/ADDEN DUM Brandy Peña MA-C [address], [place], [address], [facility] 5 14:23:50 Administ ration of tetanus vaccine Completed 201205/17/2014 RECORDED 11/10/19 13 7:49AM BY ROBERT SANDHU ON/ADDEN DUM Brandy Peña PA-C [address], [place], [address], [facility] 5 14:23:51 Pregnanc y test positive [id number] Completed 201205/17/2014 IMPRESSI ON: PT AWARE OF + SERUM HCG. WILL SEND WITH NOTE FROM YESTERDA Y AND LAB RESULT. SHE WILL CALL TO ARRANGE APPT WITH THEM.; RECORDED 11/10/19 13 7:49AM BY ROBERT SANDHU ON/ADDEN DUM [facility] [employer] [address], [place], [address], [facility] 5 14:23:51 Eruption [id number] Completed 201205/17/2014 RECORDED 11/10/19 13 7:49AM BY ROBERT SANDHU ON/ADDEN DUM [employer] [address], [place], [address], [facility] 5 14:23:51 Non-toxi c uninodul ar goiter [id number] Completed 201205/17/2014 IMPRESSI ON: KNOWN TO PT, [...] 7:49AM BY ROBERT SANDHU ON/ADDEN DUM [facility] [employer] [address], [place], [address], [facility] 5 14:23:50 Amenorrh ea [id number] Completed 201206/09/2014 IMPRESSI ON: + AT HOME TEST THIS MORNING, NEG IN OFFICE (ALTHOUG H URINE VERY DILUTE). WILL CHECK SERUM AND CONTACT PT WITH RESULT WHEN AVAIL.; RECORDED 11/10/19 13 7:49AM BY ROBERT SANDHU ON/ADDEN DUM [facility] [employer] [address], [place], [address], [facility] 5 14:23:50 Screenin g for malignan t neoplasm of cervix Completed 201206/09/2014 RECORDED 11/10/19 13 7:49AM BY ROBERT SANDHU ON/ADDEN DUM Br[employer] [address], [place], [address], [facility] 5 14:23:51 Epidermo id cyst of skin [id number] Completed 201206/09/2014 IMPRESSI ON: HAD EXCISION 10 YEARS AGO, PT FORGETS NAME OF SURGEON, WILL REFER TO SURGEON FOR POSSIBLE SURGERY, NO ABCESS NOTED TODAY, OSAK, ABX OINTMENT SEE SURGEON; RECORDED 11/10/19 13 7:49AM BY ROBERT SANDHU ON/ADDEN DUM Br[employer] [address], [place], [address], [facility] 5 14:23:50 Disorder of hair AND/OR hair follicle Completed 201206/09/2014 RECORDED 11/10/19 13 7:49AM BY ROBERT SANDHU ON/ADDEN DUM [employer] [address], [place], [address], [facility] 5 14:23:50 Administ ration of tetanus vaccine Completed 201206/09/2014 RECORDED 11/10/19 13 7:49AM BY ROBERT SANDHU ON/ADDEN DUM [employer] [address], [place], [address], [facility] 5 14:23:51 Pregnanc y test positive [id number] Completed 201206/09/2014 IMPRESSI ON: PT AWARE OF + SERUM HCG. WILL SEND WITH NOTE FROM YESTERDA Y AND LAB RESULT. SHE WILL CALL TO ARRANGE APPT WITH THEM.; RECORDED 11/10/19 13 7:49AM BY ROBERT SANDHU ON/ADDEN DUM Brandy Peña PA-C [address], [place], [address], [facility] 5 14:23:51 Eruption [id number] Completed 201206/09/2014 RECORDED 11/10/19 13 7:49AM BY ROBERT SANDHU ON/ADDEN DUM Brandy Peña PA-C [address], [place], [address], [facility] 5 14:23:51 Non-toxi c uninodul ar goiter [id number] Completed 201206/09/2014 IMPRESSI ON: KNOWN TO PT, [...] SANDHU ON/ADDEN DUM Brandy Peña PA-C [address], [place], [address], [facility] 5 14:23:50 Amenorrh ea [id number] Completed 201206/10/2014 IMPRESSI ON: + AT HOME TEST THIS MORNING, NEG IN OFFICE (ALTHOUG H URINE VERY DILUTE). WILL CHECK SERUM AND CONTACT PT WITH RESULT WHEN AVAIL.; RECORDED 11/10/19 13 7:49AM BY ROBERT SANDHU ON/ADDEN DUM Brandy Peña PA-C [address], [place], [address], [facility] 5 14:23:50 Screenin g for malignan t neoplasm of cervix Completed 201206/10/2014 RECORDED 11/10/19 13 7:49AM BY ROBERT SANDHU ON/ADDEN DUM Brandy Peña PA-C [address], [place], [address], [facility] 5 14:23:51 Epidermo id cyst of skin [id number] Completed 201206/10/2014 IMPRESSI ON: HAD EXCISION 10 YEARS AGO, PT FORGETS NAME OF SURGEON, WILL REFER TO SURGEON FOR POSSIBLE SURGERY, NO ABCESS NOTED TODAY, OSAK, ABX OINTMENT SEE SURGEON; RECORDED 11/10/19 13 7:49AM BY ROBERT SANDHU ON/ADDEN DUM [employer] [address], [place], [address], [facility] 5 14:23:50 Disorder of hair AND/OR hair follicle Completed 201206/10/2014 RECORDED 11/10/19 13 7:49AM BY ROBERT SANDHU ON/AMY DUM [facility] [employer] [address], [place], [address], [facility] 5 14:23:50 Administ ration of tetanus vaccine Completed 201206/10/2014 RECORDED 11/10/19 13 7:49AM BY ROBERT SANDHU ON/ADDEN DUM [employer] [address], [place], [address], [facility] 5 14:23:51 Pregnanc y test positive [id number] Completed 201206/10/2014 IMPRESSI ON: PT AWARE OF + SERUM HCG. WILL SEND WITH NOTE FROM YESTERDA Y AND LAB RESULT. SHE WILL CALL TO ARRANGE APPT WITH THEM.; RECORDED 11/10/19 13 7:49AM BY ROBERT SANDHU ON/ADDEN DUM [facility] [employer] [address], [place], [address], [facility] 5 14:23:51 Eruption [id number] Completed 201206/10/2014 RECORDED 11/10/19 13 7:49AM BY RUFINO SANDHUATI ON/ADDEN DUM Brandy Casey [facility]USTILL[facility] [address], [place], [address], [facility] 5 14:23:51 Non-toxi c uninodul ar goiter [id number] Completed 201206/10/2014 IMPRESSI ON: KNOWN TO PT, [...] [address], [place], [address], [facility] 5 14:23:50 Patient status finding [id number] Completed 201205/17/2014 RECORDED 01/27/20 13 2:08PM BY YUN PEÑA MA, ANNOTATI ON/ADDEN DUM MORENA Baires, [facility] 7 11:08:05 Patient status finding [id number] Completed 201206/09/2014 RECORDED 01/27/20 13 2:08PM BY YUN PEÑA MA, ANNOTATI ON/ADDEN DUM MORENA Baires, [facility] 7 11:08:05 Patient status finding [id number] Completed 201206/10/2014 RECORDED 01/27/20 13 2:08PM BY YUN PEÑA MA ANNOTISRA ON/ADDEN DUM MORENA Baires, [facility] 7 11:08:05 Adult health examinat ion Active 2012 MORENA Baires [facility] 7 11:08:17 Contact dermatit is [id number] Active 2012 MORENA Baires, [facility] 7 11:08:32 Goiter [id number] Active 2012 MORENA Baires, [facility] 7 11:08:21 Pure hypercho lesterol emia [id number] Active 2012 MORENA Baires, [facility] 7 11:08:11 Thyrotox icosis [id number] Active 2012 MORENA Baires, [facility] 7 11:08:40 Allergy Active 2012 IMPRESSI ON: ALSO TO FOOD, ON ZYRTEC AND SEEING ALLERGIS T MORENA Baires, [facility] 7 11:08:03 Pregnanc y [id number] Completed 201211/21/2016 MORENA Baires, [facility] 7 11:08:37 Chronic sinusiti s [id number] Completed 201211/21/2016 MORENA Baires, [facility] 7 11:08:28 Acute sinusiti s [id number] Completed 201211/21/2016 MORENA Baires [facility] 7 11:08:12 Follow-u p encounte r Completed 201211/21/2016 RECORDED 09/28/20 13 4:09PM BY YUN PEÑA MA, PHONE ENCOUNTE R MORENA Baires [facility] 7 11:08:22 Patient status finding [id number] Completed 201211/21/2016 RECORDED 09/28/20 13 4:08PM BY YUN PEÑA MA, ANNOTATI ON/ADDEN DUM [facility] 7 11:08:05 Miscarri age [id number] Active 2018 MORENA Baires, [facility] 9 08:54:24 Proctiti s [id number] Active 2018 Felton Rivera MD [address], [place], [address], [facility] 9 09:12:54 Problem Notes None recorded. Procedures Surgical History Date Name Laterality Status Provider Name and Address Organization Details Recorded Time 2023 Breast augmentation w/implt completed Kayla Lamar LPN [facility] 4 09:57:03 2020 Date of Last Pap Smear completed Mana Lara MA [facility] 1 13:12:35 2014 Eye Surgery completed Mana Lara MA [facility] 1 13:02:53 2013 esophagogastroduodenoscopy completed Ernestina Lima [facility] 1 14:50:00 2006 Orthopedic Surgery completed Mana Lara MA [facility] 1 13:02:53 Imaging Results None recorded. Procedure Notes None recorded. Medical Equipment None Reported. Allergies Allergen ID Allergen Name Allergen Category Reaction Reaction Severity Criticality Documentation Date Start Date Code Code System Note Provider Name and Address Organization Details Recorded Time 80181 doxycycli ne Not available rash Not available Not available 07/09/2016 3640 RxNorm Elton Peña PA-C [address], [place], [address], [facility] 6 15:36:46 09161 nickel environme nt rash Not available Not available 11/21/2016 10943 29 RxNorm WHITE GOLD MORENA Baires, [facility] 7 11:06:15 32317 animal dander environme nt hives respirato ry distress Not available Not available Not available 02/15/2019 MORENA Baires [facility] 9 08:51:24 3179 animal derived oil Not available hives respirato ry distress Not available Not available Not available 05/17/20142012 MORENA Baires [facility] 9 08:51:28 3180 house dust allergeni c extract environme nt,medica tion hives Not available Not available 05/17/20142012 09397 9 RxNorm MORENA Baires [facility] 7 11:04:13 3181 tree nut food hives Not available Not available 05/17/20142012 MORENA Baires [facility] 7 11:04:28 3182 acetamino phen / oxycodone medicatio n hives Not available Not available 05/17/20142012 35555 3 RxNorm MORENA Baires [facility] 7 11:04:15 3183 Shellfish (substanc e) food,medi cation diarrhea hives Not available Not available Not available 05/17/20142012 25049 9006 SNOMED MORENA Baires [facility] 7 11:04:17 3184 Tree Pollen medicatio n hives Not available Not available 05/17/20142012 REACT ION: TESTE D POSIT SHIELA AT ALLER GIST MORENA Baires [facility] 7 11:04:32 3185 Tylox medicatio n hives vomiting Not available Not available Not available 05/17/20142012 95975 5 RxNorm [facility]un [facility] 7 11:04:39 3186 Valium medicatio n hives vomiting Not available Not available Not available 05/17/2014201247 2 RxNorm [facility] 4 09:52:14 Medications Name Sig Start Date [...] mass index (BMI) Body weight Oxygen saturation Heart rate Body temperature Systolic And Diastolic Provider Name and Address Organization Details Last Updated DateTime 4 170.18 cm 25.4 kg/m2 01590.9 6 g 100 % 73 /min 98.2 [degF] 125/77 mm[Hg] Ashlie Culver MA [facility] 4 15:11:31 Date Recorded Body height Body mass index (BMI) Body weight Heart rate Oxygen saturation Body temperature Systolic And Diastolic Provider Name and Address Organization Details Last Updated DateTime 4 170.18 cm 26.1 kg/m2 49232.1 3 g 61 /min 99 % 98.1 [degF] 119/74 mm[Hg] Maria D Lamar LPN [facility] 4 09:51:39 Date Recorded Body weight Body mass index (BMI) Body height Heart rate Oxygen saturation Body temperature Systolic And Diastolic Provider Name and Address Organization Details Last Updated DateTime 1 65425.4 1 g 24.4 kg/m2 170.18 cm 80 /min 97 % 98.78 [degF] 115/68 mm[Hg] Mana Lara MA [facility] 1 13:09:30 Date Recorded Body height Body mass index (BMI) Body weight Heart rate Oxygen saturation Body temperature Systolic And Diastolic Provider Name and Address Organization Details Last Updated DateTime 3 170.18 cm 24.8 kg/m2 62726.6 9 g 77 /min 98 % 98.4 [degF] 127/80 mm[Hg] Charlene Sorto MA [facility] 3 14:44:33 Date Recorded Body height Heart rate Oxygen saturation Body temperature Systolic And Diastolic Provider Name and Address Organization Details Last Updated DateTime 2 170.18 cm 61 /min 97 % 98.42 [degF] 119/76 mm[Hg] Yun segundo [facility] 2 14:10:48 Social History Question Answer Notes LastModified by Organizat ion Details LastModified Time Tobacco Smoking Status Never Smoker Mana harrison [facility] 05/23/2014 09:34:38 Do You Have An Advance Directive? Yes Brother: Ernesto Tanner Information not available 07/19/2022 Is Blood Transfusion Acceptable In An Emergency? Yes Information not available 11/21/2016 What Is Your Level Of Caffeine Consumption? Moderate 1-2 Servings Daily Information not available 11/21/2016 How Much Tobacco Do You Chew? None Information not available 11/21/2016 What Type Of Diet Are You Following? SPECIFIC Information not available 04/03/2021 Which Illicit Or [...] Individual Who Tested Positive For COVID-19? No Information not available 04/03/2021 What Was The [...] 11/21/2016 Do You Use Sunscreen Routinely? 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 Never used electronic cigarettes Information not available 07/19/2022 What is your exercise level? Moderate 5-6 x week Information not available 11/21/2016 Mental Status None recorded. Family History Relationship Description Onset Age of this Age Resolved Age Notes LastModified by Organization Details LastModified Time Mother Heart disease [email or web address] Not available 2020 13:01:34 Mother Essential hypertension Not available 14:04:25 Father Hyperlipidem ia Not available 2021 14:04:25 Father Hypercholest erolemia [email or web address] Not available 2020 13:01:34 Father Obesity Not available 04/03/2021 13:01:34 Father Hypertensive disorder [email or web address] Not available 2020 13:01:34 Brother Hyperlipidem ia 30 Not available 2021 14:04:25 Brother Hypertensive disorder [email or web address] Not available 2020 13:01:34 Maternal Grandmother Neoplasm of brain Not available 2021 14:04:25 Unspecified Relation Malignant neoplasm of skin strong family histor y Not available 07/19/2022 14:04:25 Paternal Uncle Hypercholest erolemia [email or web address] Not available 2020 13:01:34 Medical History Condition Response Anesthesia Complications Y Head Injury/Concussion Y High Cholesterol Y GI Problems Y Constipation Y Eczema Y Allergies Y Chicken Pox Y Gynecological History Statement/Question [...] virus, trivalent, preservative 08/03/20 18 completed MORENA Briceno [facility] 05/12/2023 14:38:04 Tdap 12/04/19 13 completed MORENA Briceno, [facility] 05/12/2023 14:38:04 COVID-19, mRNA, LNP-S, PF, 30 mcg/0.3 mL dose 06/26/20 21 completed MORENA Briceno, [facility] 05/12/2023 14:38:04 COVID-19, mRNA, LNP-S, PF, 30 mcg/0.3 mL dose 07/17/20 21 completed MORENA Briceno, [facility] 05/12/2023 14:38:04 Influenza, split virus, quadrivalent, PF 07/28/20 19 completed MORENA Briceno, [facility] 05/12/2023 14:38:04 Td(adult) unspecified formulation 05/16/20 05 completed MORENA Montes De Oca, [facility] 01/09/2024 14:54:17 Influenza, split virus, quadrivalent, PF 07/23/20 18 completed MORENA Montes De Oca, [facility] 01/09/2024 14:54:17 Influenza, split virus, quadrivalent, PF 09/04/20 16 completed Not [facility] 11/20/2019 02:22:07 Influenza, split virus, quadrivalent, PF 04/03/20 21 cancelled patient objection Karen Acuna MD [address], [address], [facility] 04/03/2021 21:58:12 Past Encounters Encounter ID Performer Location Encounter Start Date Encounter Closed Date Diagnosis/Indication Diagnosis SNOMED-CT Code Diagnosis ICD10 Code Diagnosis IMO Codes Diagnosis Note [id number] JAN Garcia Main Office [address] [facility] [address] [place] [address] 05/23/2014 09:07:26 05/23/2014 10:00:00 Painless rectal bleeding [id number] PT to make GI appt/disc. possible causes of rectal bleeding and the need for further evaluation [id number] [place] [address] [address] [place] [address] 08/25/2010 00:00:00 [id number] [facility] [address] [facility] [address] [place] [address] 10/04/2010 00:00:00 [id number] [facility] [address] [facility] [address] [place] [address] 10/25/2010 00:00:00 [id number] [facility] [address] [address] [facility] [address] [place] [address] 02/12/2011 00:00:00 [id number] [employer] [address] [facility] [address] [place] [address] 09/09/2011 00:00:00 [id number] [employer] [address] [address] [facility] [address] [place] [address] 11/01/2011 00:00:00 [id number] [employer] [address] [facility] [address] [place] [address] 04/13/2012 00:00:00 [id number] [employer] [address] [facility] [address] [place] [address] 11/10/2012 00:00:00 [id number] [employer] [address] [facility] [address] [place] [address] 01/26/2013 00:00:00 [id number] [employer] [address] [facility] [address] [place] [address] 03/10/2013 00:00:00 [id number] Brandy Peña PA-C Main Office [address] [facility] [address] [place] [address] 10/06/2015 13:37:33 10/06/2015 14:23:08 Acute pharyngitis 270389263 J02.9 Acute sinusitis 74037411 J01.90 Acute sinusitis. Start Doxycyclin e 100 mg BID for 1 week. Fluticason e 2 sprays qd. nasal saline solution TID. Muconex D BID. F/u as needed. [id number] Elton Peña PA-C Main Office [address] [address] [place] [address] 07/09/2016 15:07:00 07/09/2016 15:59:57 Chronic sinusitis 18073803 J32.9 25 minute office visit with greater than 50% of the visit face-to-fa ce with the patient and/or family providing counseling and/or coordinati on of care. [id number] Sunny Zarate MD Main Office [address] [place] [address] 09/04/2016 10:21:39 09/04/2016 11:38:24 Dysuria 13096018 R30.0 Based on urine dipstick will defer treatment pending results of formal UA. Treat if infection is evicdent. Blood in urine 64070438 R31.9 ? urologic vs gynecologi c source. If urinary tract imaging is unremarkab le and symptoms do not recur. will defer further evaluation to her gynecologi st. Needs infl uenza immunization 163585488 Z23 [id number] Felton Rivera MD Main Office [address] [place] [address] [place] [address] 11/21/2016 10:52:42 11/21/2016 12:03:03 Adult health examination 931672960 Z00.00 Hyperlipidemia 18694389 E78.5 [id number] Felton Rivera MD Main Office [address] [address] [place] [address] 02/21/2017 10:12:56 02/21/2017 11:41:36 Acute pharyngitis 722377425 J02.9 [id number] Felton Rivera MD Main Office [address] [place] [address] 02/15/2019 08:28:06 02/15/2019 09:36:20 Adult health examination 330204350 Z00.00 Pure hypercholesterolemia 499764483 E78.00 [id number] Ravinder Tavarez MD Main Office [address] [address] [place] [address] 02/08/2020 14:02:55 02/08/2020 15:54:24 Urinary tract infectious disease 67930103 N39.0 hydration- push fluids, cipro BID as directed x 3 days. call or return of sx worsen or you develop fever, chills, flank pain, n/v/d. [id number] Karen Acuna MD Main Office [address] [facility] [address] [place] [address] 04/03/2021 12:57:13 04/03/2021 14:04:23 Adult health examination 797620793 Z00.00 Patient was counseled on healthy diet, exercise and nutrition due to Body mass index is 24.4 kg/m . Last Mammogram: Date: Result: Plan: No fhx, discussed usp guideline to screen at 50, she opted [...] Distracted driving discussed. Medication reconciled . Fatigue 90803469 R53.83 Hyperlipidemia 17962143 E78.5 Influenza vaccination declined 594186534 Z28.21 Contact de rmatitis caused by urushiol from [facility] cristina 070636407 L25.5 Mild, is healing, is managing with OTC treatment. Has taking OTC antihistam ine and cold soaks. If worsens she is aware to let us know so we can start additional treatment. [id number] Karen Acuna MD Main Office [address] [facility] [address] [place] [address] 07/19/2022 14:03:26 07/19/2022 14:42:06 Low back pain 936021995 M54.50 [id number] Felton Rivera MD Main Office [address] [facility] [address] [place] [address] 05/12/2023 14:20:18 05/12/2023 15:15:48 Paronychia of finger 367388347 L03.011 [id number] Ravinder Tavarez MD Main Office [address] [place] [address] 01/09/2024 14:51:27 01/09/2024 15:26:13 Pre-surgery evaluation 420955634 Z01.818 No medical contraindi cations to proposed procedure. Watters Perioperat shiela Cardiac Risk was calculated and the risk for perioperat shiela LA is <0.5%. May proceed to surgery as planned. pre-operat shiela medical clearance for breast augmentati on (L&R) with Dr. Coburn (NPI# [id number] ) on 01/20/2024. -completed blood work on 12/26 for surgery center [id number] Ravinder Tavarez MD Main Office [address] [place] [address] 02/13/2024 09:39:24 02/13/2024 10:21:59 Adult health examination 352811090 Z00.00 Continue with healthy diet, exercise and nutrition due to Body mass index is 26.1 kg/m . Last Mammogram: Date: Result: Plan: No fhx, discussed usptf guideline to screen at 50, she opted to start age 50. Last Pap smear Date: 04/04/2023 Result: Plan: appt on 04/05/24 Vaccines: TdAP: pt will receive tdap at [facility] Zoster: Not due PCV13: Not due PPSV23: Not due Influenza: Not in season Covid: Concerns discussed patient would like to wait at this time. Bone density scan: Not due Routine labs today, Immunizati on status reviewed. Will screen based on risk factors. Regular dental and ophtho care advised as well as seat belt and suncreen use. Distracted driving discussed. Medication reconciled . Fatigue 34094387 R53.83 Hyperlipidemia 14359356 E78.5 Health Concerns Section Related Observation LastModified by Organization Detai ls LastModified Time None Recorded Concern Status LastModified by Organization Details LastModified Time None Recorded Advance Directives Directive Y: brother: Ernesto Tanner Payers Insurance Date Sequence Insurance Name Policy Number Policy Murray Covered Member ID Murray Member ID Guarantor Name 02/13/2024 [employer] [facility] [employer] [place] [id number] Chichi Chuey [id number] Chichi Manrique Flores 02/12/2019 1 [facility] [employer] ([employer]) [id number] [id number] Chichi Burton Tanner Notes Date Note Type Note Provider Name and Address Organization Details Recorded Time 04/03/2021 text/html Generic HPI TemplateReported by Patient Patient present for well adult visit Complaints: Poison Cristina rash. 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 Karen Acuna MD [address] [address], [place], [address], [facility] 04/03/2021 22:07:06 07/19/2022 text/html Back PainReporte d [...] but no improvement. Karen Acuna MD [address] [facility] [address], [place], [address], [facility] 07/19/2022 14:34:14 05/12/2023 text/html ROS as noted in the HPI Redness and swelling around nail bed right hand long finger. No swelling at pad of finger. No drainage. No obvious drainage/open lesion. No trauma. notes that she picks at my cuticles Felton Rivera MD [address] [address], [place], [address], [facility] 05/12/2023 15:19:04 01/09/2024 text/html ROS as noted in the HPI Chichi is a 43yr old F with PMHx of ENTER HERE presents for pre-operative medical clearance for breast augmentation (L&R) with Dr. Coburn (NPI# [id number]) on 01/20/2024. Under general anesthesia. Denies any [...] fever, chills, and nausea/vomiting. TAMERA BOYD [address] [facility] [address], [place], [address], [facility] 01/09/2024 15:29:26 02/13/2024 text/html ROS as noted in the HPI Chichi is a 43yr old F who presents for annual physical exam. Complaints: recently had a breast augmentation x1 month ago and its still in the recovering period. Is currently on singulair x1 month and notes of AE of depression. Has x1 week left. 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 TAMERA BOYD [address] [address], [place], [address], [facility] 02/13/2024 10:36:19 OBGyn Episode No OBEpisode recorded.
== END 2025-10-24 08:42 | disposition home or self-care (01) ==
LOC: HO.HMGAL 08:39
PROVIDERS: PCP Family Medicine; Visit Provider Registered Nurse Emergency
DX: J30.89 Other allergic rhinitis (principal)
CPT/HCPCS: 95117; 95165